=== PATIENT | male | born 1955 | race Caucasian/White ===

== ENCOUNTER → 2019-06-20 | Outpatient (REF) | payer OTHER ==
[2019-06-20 16:36] LABS: PLATELET COUNT, AUTOMATED 153 10^3/uL (150-450)
[2019-06-20 16:48] LABS: INR 1.61; PROTHROMBIN TIME 18.9 SECONDS (11.8-14.0)
[2019-06-20 16:49] LABS: PARTIAL THROMBOPLASTIN TIME 38.3 SECONDS (25.0-38.4)
[2019-06-20 17:14] LABS: ERYTHROCYTE SEDIMENTATION RATE 13 mm/hr (0-20)
== END ==
LOC: M LABDRAW1 14:46
PROVIDERS: ATTEND Physical Medicine & Rehabilitation
DX: Z01.812 Encounter for preprocedural laboratory examination (principal); M51.37 Other intervertebral disc degeneration, lumbosacral region

== ENCOUNTER → 2020-04-18 | Outpatient (CLI) | payer OTHER | LOC: M LABSMTC 11:11 | PROVIDERS: ATTEND Physical Medicine & Rehabilitation | DX: Z03.818 Encounter for observation for suspected exposure to other biological agents ruled out (principal); Z11.59 Encounter for screening for other viral diseases ==

== ENCOUNTER → 2020-07-14 | Outpatient (CLI) | payer OTHER | LOC: M LABSMTC 09:06 | PROVIDERS: ATTEND Physical Medicine & Rehabilitation | DX: Z01.812 Encounter for preprocedural laboratory examination (principal); Z20.828 Contact with and (suspected) exposure to other viral communicable diseases ==

== ENCOUNTER 2020-12-17 11:05 | Inpatient (IN) | payer MEDICARE, OTHER ==
[~2020-12-17] VITALS: Ht 185.4 cm; Wt 131.5 kg
[2020-12-23] MEDS: CLOTRIMAZOLE 10 MG TROCHE PO SCH ×3 (17:00→21:03)
[2020-12-23] MEDS ORDERED: LOSA100T50 PO (17:15)
[2020-12-23] MEDS ORDERED: PANT40TA29 PO (17:15)
[2020-12-23] MEDS ORDERED: TAMS1CAP17 PO (17:15)
[2020-12-23] MEDS ORDERED: POTA20TA6 PO (17:15)
[2020-12-23] MEDS ORDERED: XARE20TA PO (17:15)
[2020-12-23] MEDS ORDERED: METO1TAB33 PO (17:15)
[2020-12-23] MEDS ORDERED: FURO40TA2 PO (17:15)
[2020-12-23] MEDS ORDERED: ATOR1TAB19 PO (17:15)
[2020-12-23] MEDS ORDERED: METF500T13 PO (17:15)
[2020-12-23] MEDS ORDERED: GLUCOSE 4GM CHEW TABLET PO PRN (17:45)
[2020-12-23] MEDS ORDERED: GLUCAGON INJ 1MG VIAL SC PRN (17:45)
[2020-12-23] MEDS ORDERED: ONDANSETRON 4 MG ORAL DISINTEGRATING TAB PO PRN (17:45)
[2020-12-23] MEDS ORDERED: DEXTROSE 50% 50 ML SYRINGE IV PRN (17:45)
[2020-12-23] MEDS ORDERED: ACETAMINOPHEN TAB 650MG DOSE (2X325MG) PO PRN (17:45)
[2020-12-23 18:00] VITALS: BP 142/78
[2020-12-23] MEDS ORDERED: NAFCILLIN SOD 2 GM in D5W MINI-BAG PLUS 50 ML IV SCH ×2 (18:00→21:00)
[2020-12-23] MEDS ORDERED: CLOT10TR PO (18:03)
[2020-12-23] MEDS ORDERED: ACET650T15 PO (18:03)
[2020-12-23] MEDS ORDERED: ONDA4TAB6 PO (18:03)
[2020-12-23] MEDS ORDERED: HYDR-3363 PO (18:03)
[2020-12-23] MEDS ORDERED: LORA-622 PO (18:03)
[2020-12-23] MEDS ORDERED: POLY1POW38 PO (18:03)
[2020-12-23] MEDS ORDERED: SENN-23 PO (18:03)
[2020-12-23] MEDS ORDERED: BIOT1000 PO (18:03)
[2020-12-23] MEDS ORDERED: AMLO2.5T3 PO (18:03)
[2020-12-23] MEDS ORDERED: ROBA750T4 PO (18:03)
[2020-12-23] MEDS ORDERED: COQ1100C4 PO (18:03)
[2020-12-23] MEDS ORDERED: HYDR-3713 PO (18:03)
[2020-12-23] MEDS ORDERED: VITATAB PO (18:03)
[2020-12-23] MEDS ORDERED: BACTINJ2 IV (18:03)
[2020-12-23] MEDS ORDERED: PILL CUTTER 1 EACH XX PRN (18:20)
[2020-12-23] MEDS: RIVAROXABAN 20 MG TAB (XARELTO) PO SCH (18:32)
[2020-12-23] MEDS: NORCO, ANEXSIA 5/325MG TABLET (HYDROcodone/ACETAMINOPHEN) PO PRN (18:33)
[2020-12-23] MEDS: FUROSEMIDE 40 MG TAB PO SCH (18:33)
[2020-12-23 20:00] VITALS: BP 157/86
[2020-12-23] MEDS: NAFCILLIN SOD 2 GM in D5W MINI-BAG PLUS 50 ML IV SCH (20:52)
[2020-12-23] MEDS: POTASSIUM CHLORIDE 10 MEQ SR TABLET PO SCH (20:52)
[2020-12-23] MEDS: NYSTATIN 100,000 UNITS/GM TOPICAL PWD 15 GM TOP SCH (20:52)
[2020-12-23] MEDS: TAMSULOSIN 0.4 MG CAP PO SCH (20:53)
[2020-12-23] MEDS: ATORVASTATIN 10 MG TAB PO SCH (20:53)
[2020-12-23] MEDS: LACTOBACILLUS ACIDOPHILUS CAP (BACID) PO SCH (20:53)
[2020-12-23] MEDS: DOCUSATE SODIUM 100MG CAPSULE PO SCH (20:54)
[2020-12-23] MEDS: SENNA 8.6 MG TAB (SENOKOT) PO SCH (20:55)
[2020-12-23] MEDS: HumaLOG INSULIN (NovoLOG) PER UNIT SC SCH (21:00)
[2020-12-23] MEDS: REMEDY PHYTOPLEX Z-GUARD PASTE 113GM TUBE (FROM STOREROOM PRODUCT) TOP SCH (21:00)
--- NOTE | 2020-12-23 22:14 | HPEPDOC ---
Chain Puller Note DATE OF ADMISSION: 12-23-20 DATE OF SERVICE: 12-24-20 TIME OF ADMISSION: Please refer to physician's admission order. SOURCE OF ADMISSION INFORMATION: [facility] record and patient CHIEF COMPLAINT: spinal stenosis HISTORY OF PRESENT ILLNESS: 65M pmh Afib on xarelto, morbid obesity, MELIA, HTN, DM, CHF with chronic low back pain in setting of known spinal stenosis with worsening LE weakness and saddle region anesthesia with new onset urinary incontinence [facility] with [facility] pain, fevers, and chills. He was diagnosed with [id number] abscess and underwent a L3-L5 laminectomy with abscess I&D on 12-09-[address] Hernandez. Blood cultures grew gram positive cocci, his abscess grew MSSA and his urine culture grew klebsiella. He was also diagnosed with bilateral pneumonia for which he was placed on broad spectrum coverage, meropenem and then later switched to oxacillin to be continued until February 01. He had TIKI for which his diuretics were held and then later restarted for his chronic diastolic CHF. His Xarelto was held and then restarted on 12-18-20. He had deficits in mobility and ADLs and was deemed medically appropriate for discharge to ARU on 12-23-20. REVIEW OF SYSTEMS: The following is a completed review of systems and has been reviewed. Review of systems otherwise unremarkable. PAIN: Patient self reports left lateral hip pain EYES: No recent vision changes EARS, NOSE, & THROAT: No throat pain, or dysphagia, or rhinorrhea CARDIOVASCULAR: Denies chest pain or palpitations PULMONARY: Denies shortness of breath GASTROINTESTINAL: Denies constipation/diarrhea GENITOURINARY: +urinary incontinence MUSCULOSKELETAL: LE weakness NEUROLOGICAL:LE paresthesias HEMATOLOGICAL: denies easy bruising SKIN: lumbar incision PSYCHIATRIC: Unremarkable All other review of systems found to be negative. PAST MEDICAL HISTORY: as per HPI PAST SURGICAL HISTORY: none ALLERGIES: Please see below. MEDICATIONS: Please see below. SOCIAL HISTORY: occasional etoh, no smoking/drugs DIET: consistent carb PHYSICAL EXAMINATION: VITAL SIGNS: Please see below. GENERAL: Pleasant and cooperative. No acute distress. HEENT: PERRL. Extraocular movements intact. Clear conjunctiva CARDIOVASCULAR: Regular rate and rhythm. No murmurs, rubs, or gallops LUNGS: Clear to auscultation bilaterally. No wheezes. No rhonchi ABDOMEN: Soft, nontender, nondistended. Positive bowel sounds. Normal active bowel sounds NEUROLOGICAL: Alert and oriented times three. Cranial nerves II through XII grossly intact. Sensation grossly intact in all 4limbs EXTREMITIES: 5\5 strength bilateral upper extremities. 4+\5 strength right lower extremity. 4+/5 strength in left lower extremity. TTP left posterior buttock SKIN: lumbar incision with dermabond, c/d/i, sacrum without ulcer LABORATORY DATA: Please see below. IMAGING:Imaging documentation personally reviewed by record FUNCTIONAL STATUS: Premorbid: Modified Independent with all activities of daily life as well as mobility On Admission: Mod-Max for bed mobility, functional transfers, ambulation, toileting GOALS: Mod-I ambulating with RW household distances, dressing, bathing, toileting, bed mobility ASSESSMENT:65-year-old M with past medical history of spinal who presents status post L3-L5 laminectomy in setting of neurogenic claudication PLAN: 1. Rehab- PT/OT advance mobility and ADLs, spinal precautions 2. Neuro/ortho- bilat LE weakness in setting of spinal stenosis s/p L3-L5 laminectomy and epidural drainage -monitor for worsening weakness, saddle region anesthesia, or worsening urinary incontinence, patient denies fecal incontinence -f/u spine surgeon upon dc 3. cardiac- hx of afib on xarelto, c/u betablocker -HTN c/u BP meds, adjust prn -chronic CHF c/u lasix and potassium supplements -HLD c/u statin 4. resp- MELIA on CPAP, monitor for infection, patient had recent HAP PNA 5.GI ppx- protonix 6. DVT ppx- on xarelto 7. ID- c/u Nafcillin ([facility] does not carry oxacillin) until 02-01-21, trend esr/crp, will consult dr gonsalez prior to d/c 8. Pain- norco methocarbamol 9. Dispo- tbd POST ADMISSION PHYSICIAN EVALUATION: Medical and functional status: Description of medical status, medical assess ment: As above. Rehabilitation diagnosis and current and prior cold morbid medical conditions as above. Risk of complications and plans to mitigate them as above. Description of functional status current status is as above. Prior status as above. Status compared to preadmission: There are no clinically significant differences between the patient's current status and the information described on the preadmission screening document. Treatment plan anticipated: Treatment plan is as described above. Required disciplines including physical therapy, occupational therapy, others as noted ab ove Intensity of services: 3 hours a day, 6 days a week. Special considerations: There are no specific special or safety considerations that would likely preclude immediate implementation of an intensive r ehabilitation program or subsequently influence the plan of care. ATTESTATION: Considering all the information above, it is my best judgment that this patient requires intensive rehabilitation therapy as described above and an inpatient hospital environment due to the complexity of nursing, medical, and rehabilitation needs required by the patient. Furthermore, this patient can re asonably be expected to participate in an benefit from an inpatient rehabilitation stay with an interdisciplinary team approach to the delivery of rehabilitation care under the direction and supervision of rehabilitation physician. PROGNOSIS: Excellent ESTIMATED LENGTH OF STAY:14-18 days. PROJECTED DISCHARGE DESTINATION: Home with family support and any durable medical equipment required to increase functional safety and mobility TIME SPENT COUNSELING AND COORDINATING INITIAL CARE: Greater than 70 minutes. Vital Signs Vital Sign - Last 24 Hours 12/23/20 12/23/20 12/23/20 12/23/20 18:00 18:33 19:30 20:00 Temp 97.8 98.2 Pulse 89 97 Resp 20 18 18 20 B/P (MAP) 142/78 (99) 157/86 (109) Pulse Ox 94 96 O2 Delivery Room Air Room Air Room Air Room Air Laboratory Data Labs 24H Laboratory Tests 2 12/23/20 20:59: Bedside Glucose (Misc Panel) 153H FSBS Laboratory Tests Test 12/23/20 20:59 Range/Units Bedside Glucose (Misc Panel) 153 80-115 MG/DL Home Medications Scheduled Amlodipine Besylate (Amlodipine Besylate) 2.5 Mg Tablet, 2.5 MG PO DAILY, (Reported) Atorvastatin Calcium (Atorvastatin Calcium) 10 Mg Tablet, 10 MG PO QHS, (Reported) Beta-Carotene(A)-Vits C and E (E-400 C-500 & Beta Carotene) 1 Each Tablet, 1 TAB PO DAILY, (Reported) Biotin (Biotin) 1 Mg Tablet, 1,000 MCG PO Q2D, (Reported) Clotrimazole (Clotrimazole) 10 Mg Yaya, 10 MG PO 5XD, (Reported) Furosemide (Furosemide) 40 Mg Tablet, 40 MG PO BID, (Reported) Loratadine (Loratadine) 10 Mg Tablet, 10 MG PO DAILY, (Reported) Losartan Potassium (Losartan Potassium) 100 Mg Tablet, 100 MG PO DAILY, (Reported) Metformin HCl (Metformin HCl) 500 Mg Tablet, 500 MG PO DAILY, (Reported) Metoprolol Succinate (Metoprolol Succinate) 100 Mg Tab.er.24h, 150 MG PO DAILY, (Reported) Oxacillin in Dextrose(Iso-Osm) (Oxacillin 2 gm/ 50 ml Inj) 2 Gm/50 Ml Froz.piggy, 2 GM IV Q4H, (Reported) Pantoprazole Sodium (Pantoprazole Sodium) 40 Mg Tablet.dr, 40 MG PO DAILY, (Reported) Polyethylene Glycol 3350 (Polyethylene Glycol 3350) 17 Gm Powd.pack, 17 GM PO DAILY, (Reported) Potassium Chloride (Potassium Chloride) 20 Meq Tab.er.prt, 20 MEQ PO BID, (Reported) Rivaroxaban (Xarelto) 20 Mg Tablet, 20 MG PO QPM, (Reported) Sennosides/Docusate Sodium (Senna-S Tablet) 1 Each Tablet, 2 TAB PO QHS, (Rep orted) Tamsulosin Hcl (Tamsulosin HCl) 0.4 Mg Capsule, 0.4 MG PO QHS, (Reported) Ubidecarenone (Co Q-10) 100 Mg Capsule, 100 MG PO QHS, (Reported) Scheduled PRN Acetaminophen (Acetaminophen ER) 650 Mg Tablet.er, 1,300 MG PO TID PRN for PAIN, (Reported) Hydrocodone/Acetaminophen (Hydrocodone-Acetamin 5-325 mg) 1 Each Tablet, 1 TAB PO Q4H PRN for PAIN, (Reported) Hydroxyzine HCl (Hydroxyzine HCl) 25 Mg Tablet, 12.5 MG PO TID PRN for ITCHING, (Reported) Methocarbamol (Robaxin-750) 750 Mg Tablet, 750 MG PO TID PRN for MUSCLE SPASMS, (Reported) Ondansetron (Ondansetron Odt) 4 Mg Tab.rapdis, 4 MG PO Q4H PRN for NAUSEA OR VOMITING, (Reported) Allergies Coded Allergies: No Known Drug Allergies (Verified Allergy, Unknown, 12/23/20) A-FIB/CHADSVASC A-FIB History Current/History of A-Fib/PAF?: Yes Current PO Anticoag Therapy: Yes ARIC FISCHER MD Dec 23, 2020 22:14
[2020-12-24] MEDS: NORCO, ANEXSIA 5/325MG TABLET (HYDROcodone/ACETAMINOPHEN) PO PRN ×2 (01:34→08:19)
[2020-12-24] MEDS: NAFCILLIN SOD 2 GM in D5W MINI-BAG PLUS 50 ML IV SCH ×6 (01:34→20:54)
[2020-12-24] MEDS: CLOTRIMAZOLE 10 MG TROCHE PO SCH ×5 (05:18→20:53)
[2020-12-24 06:00] VITALS: BP 148/87
[2020-12-24] MEDS: methocarbamoL 750 MG TAB PO PRN (06:16)
[2020-12-24 07:05] LABS: BASO # 0.1 10^3/uL (0.0-0.2); BASO % 0.6 % (0.0-1.0); EOS # 0.2 10^3/uL (0.0-0.5); HEMATOCRIT 34.5 % (42.0-52.0); HEMOGLOBIN 10.7 g/dl (13.5-17.5); LYMPH # 1.7 10^3/uL (1.5-5.0); LYMPH % 16.8 % (24.0-44.0); MEAN CORPUSCULAR HEMOGLOBIN 28.1 pg (27.0-33.0); MEAN CORPUSCULAR VOLUME 90.6 fl (80.0-96.0); MONO # 0.8 10^3/uL (0.0-0.8); NEUTROPHILS # 7.1 10^3/uL (1.5-8.5); NEUTROPHILS % 72.2 % (36.0-66.0); PLATELET COUNT, AUTOMATED 300 10^3/uL (150-450); RED BLOOD COUNT 3.81 10^6/uL (4.30-6.10); WHITE BLOOD COUNT 9.9 10^3/uL (4.0-10.0)
[2020-12-24 07:25] LABS: ALBUMIN 2.3 GM/DL (3.2-5.2); ALT/SGPT 70 U/L (12-78); BILIRUBIN,TOTAL 0.6 MG/DL (0.2-1.0); BLOOD UREA NITROGEN 13 MG/DL (7-18); CALCIUM LEVEL 8.6 MG/DL (8.8-10.2); CARBON DIOXIDE LEVEL 31 MEQ/L (21-32); CHLORIDE LEVEL 106 MEQ/L (98-107); CREATININE FOR GFR 0.81 MG/DL (0.70-1.30); GLOMERULAR FILTRATION RATE > 60.0 (>49); GLUCOSE, FASTING 117 MG/DL (70-100); POTASSIUM SERUM 3.8 MEQ/L (3.5-5.1); SODIUM LEVEL 140 MEQ/L (136-145); TOTAL PROTEIN 6.7 GM/DL (6.4-8.2)
[2020-12-24] MEDS: VITAMIN E 400 INTERNATIONAL UNITS CAP PO SCH (08:04)
[2020-12-24] MEDS: DOCUSATE SODIUM 100MG CAPSULE PO SCH ×2 (08:04→20:53)
[2020-12-24] MEDS: LORATADINE 10 MG TAB PO SCH (08:04)
[2020-12-24] MEDS: HumaLOG INSULIN (NovoLOG) PER UNIT SC SCH ×4 (08:04→20:42)
[2020-12-24] MEDS: LACTOBACILLUS ACIDOPHILUS CAP (BACID) PO SCH ×3 (08:05→20:54)
[2020-12-24] MEDS: FUROSEMIDE 40 MG TAB PO SCH ×2 (08:06→17:09)
[2020-12-24] MEDS: METOPROLOL SUCC (TopROL XL) 50MG **XL** TAB PO SCH (08:06)
[2020-12-24] MEDS: ASCORBIC ACID 500 MG TAB PO SCH (08:06)
[2020-12-24] MEDS: POTASSIUM CHLORIDE 10 MEQ SR TABLET PO SCH ×2 (08:06→20:54)
[2020-12-24] MEDS: PANTOPRAZOLE 40MG TAB (PROTONIX) PO SCH (08:06)
[2020-12-24] MEDS: REMEDY PHYTOPLEX Z-GUARD PASTE 113GM TUBE (FROM STOREROOM PRODUCT) TOP SCH ×3 (08:07→20:54)
[2020-12-24] MEDS: LOSARTAN 50MG TABLET PO SCH (08:07)
[2020-12-24] MEDS: NYSTATIN 100,000 UNITS/GM TOPICAL PWD 15 GM TOP SCH ×2 (08:07→20:54)
[2020-12-24] MEDS ORDERED: ANEXSIA, NORCO 7.5MG/325MG TABLET(HYDROCODONE/APAP) PO ONE (12:00)
[2020-12-24] MEDS: hydrOXYzine 25 MG TAB PO PRN (12:25)
--- NOTE | 2020-12-24 12:51 | CR.PDOC ---
General Date of Consultation: Dec 24, 2020 Referring Provider: DAVID GOOD PIC Consultation REASON FOR CONSULTATION/CHIEF COMPLAINT: Management of Medical comorbidities HISTORY OF PRESENT ILLNESS: 65M pmh Afib on xarelto, morbid obesity, HTN, DM, diastolic CHF with chronic low back pain in setting of known spinal stenosis with worsening LE weakness and saddle region anesthesia with new onset urinary incontinence and presented to [facility] with worsening pain, fevers, and chills. He was diagnosed with L3-S1 epidural abscess and underwent a L3-L5 laminectomy with abscess I&D on 12-09-[address] Hernandez. Blood cultures grew gram positive cocci , his abscess grew MSSA. His hospital course was complicated by UTI with Klebsiella, bilateral pneumonia and TIKI. He was initially treated with meropenem and then later switched to oxacillin to be continued until February 01. His Xarelto was restarted on 12-18-20. He had deficits in mobility and ADLs and was deemed medically appropriate for discharge to ARU on 12-23-20.. Today complains of back pain about 4/10 dull aching in nature. ALLERGIES: Please see below. HOME MEDICATIONS: Please see below. PAST MEDICAL HISTORY: Afib on xarelto, Morbid obesity, HTN, DM, diastolic CHF, HLD, spinal stenosis with chronic low back pain had back injection in aug 2020, MELIA on CPAP PAST SURGICAL HISTORY: None FAMILY HISTORY: Father, paternal grandfather, paternal uncle, brother with Diabetes Father, paternal grandfather, 2 paternal uncles and i brother and sister with A fib. SOCIAL HISTORY: Retired RN. Tobacco use: denies ETOH: occasional Illicit drug use: denies REVIEW OF SYSTEMS: CONSTITUTIONAL: No fever or chills. CARDIOVASCULAR: No chest pain or SOB RESPIRATORY: No cough or SOB , no wheezing MUSCULOSKELETAL: Low back pain at the site of the surgery. GASTROINTESTINAL: Denies abdominal pain or nausea or vomiting or diarrhea PHYSICAL EXAMINATION: VITAL SIGNS: Please see below. GENERAL APPEARANCE: Laying flat in bed in no acute distress. Alert , oriented x 3 HEENT: NC/AT moist mucous membranes, anicteric eyes, dry mucous membranes RESPIRATORY: Clear to auscultation CARDIOVASCULAR: Normal S1, S2, no murmur, rub or gallop ABDOMEN: soft, obese, nontender, bowel sounds normal EXTREMITIES: No edema LABORATORY DATA: Please see below. ASSESSMENT/PLAN: L3-S1 epidural abscess by MSSA underwent a L3-L5 laminectomy with abscess I&D on 12-09-20 at [facility] He reports that he had an epidural injection at the low back in Aug 2020, No h/o IV drug use or any other recent infection. He did get his 2 doses of COVID vaccine in nov and the second dose 1 week prir t admission at [facility] Nafcillin till February 01 Afib rate controlled with metoprolol, Ac with xarelto HTN on losartan, metoprolol , amlodipine and lasix Diastolic CHF on lasix bid BPH on flomax. MELIA Continue home CPAP DVT prophylaxis on xarelto Vital Signs/I&O Vital Signs Date Time Temp Pulse Resp B/P (MAP) Pulse Ox O2 Delivery O2 Flow Rate FiO2 12/24/20 06:00 98.3 85 20 148/87 (107) 97 Room Air I&O- Last 24 Hours up to 6 AM 12/24/20 06:00 Intake Total 400 ml Output Total 1550 ml Balance -1150 ml Laboratory Data Labs 24H Laboratory Tests 2 12/23/20 20:59: Bedside Glucose (Misc Panel) 153H 12/24/20 05:58: Bedside Glucose (Misc Panel) 106 12/24/20 06:30: Immature Granulocyte % (Auto) 0.4, Neutrophils (%) (Auto) 72.2H, Lymphocytes (%) (Auto) 16.8L, Monocytes (%) (Auto) 8.0, Eosinophils (%) (Auto) 2.0, Basophils (%) (Auto) 0.6, Neutrophils # (Auto) 7.1, Lymphocytes # (Auto) 1.7, Monocytes # (Auto) 0.8, Eosinophils # (Auto) 0.2, Basophils # (Auto) 0.1, Nucleated Red Blood Cells % (auto) 0.0, Anion Gap 3L, Glomerular Filtration Rate > 60.0, Calcium Level 8.6L, Total Bilirubin 0.6, Aspartate Amino Transf (AST/SGOT) 24, Alanine Aminotransferase (ALT/SGPT) 70, Alkaline Phosphatase 93, Total Protein 6.7, Albumin 2.3L, Albumin/Globulin Ratio 0.5 CBC/BMP Laboratory Tests 12/24/20 06:30 Allergies Coded Allergies: No Known Drug Allergies (Verified Allergy, Unknown, 12/23/20) Home Medications Scheduled Amlodipine Besylate (Amlodipine Besylate) 2.5 Mg Tablet, 2.5 MG PO DAILY, (Rep orted) Atorvastatin Calcium (Atorvastatin Calcium) 10 Mg Tablet, 10 MG PO QHS, (Reported) Beta-Carotene(A)-Vits C and E (E-400 C-500 & Beta Carotene) 1 Each Tablet, 1 TAB PO DAILY, (Reported) Biotin (Biotin) 1 Mg Tablet, 1,000 MCG PO Q2D, (Reported) Clotrimazole (Clotrimazole) 10 Mg Yaya, 10 MG PO 5XD, (Reported) Furosemide (Furosemide) 40 Mg Tablet, 40 MG PO BID, (Reported) Loratadine (Loratadine) 10 Mg Tablet, 10 MG PO DAILY, (Reported) Losartan Potassium (Losartan Potassium) 100 Mg Tablet, 100 MG PO DAILY, (Reported) Metformin HCl (Metformin HCl) 500 Mg Tablet, 500 MG PO DAILY, (Reported) Metoprolol Succinate (Metoprolol Succinate) 100 Mg Tab.er.24h, 150 MG PO DAILY, (Reported) Oxacillin in Dextrose(Iso-Osm) (Oxacillin 2 gm/ 50 ml Inj) 2 Gm/50 Ml Froz.piggy, 2 GM IV Q4H, (Reported) Pantoprazole Sodium (Pantoprazole Sodium) 40 Mg Tablet.dr, 40 MG PO DAILY, (Reported) Polyethylene Glycol 3350 (Polyethylene Glycol 3350) 17 Gm Powd.pack, 17 GM PO DAILY, (Reported) Potassium Chloride (Potassium Chloride) 20 Meq Tab.er.prt, 20 MEQ PO BID, (Reported) Rivaroxaban (Xarelto) 20 Mg Tablet, 20 MG PO QPM, (Reported) Sennosides/Docusate Sodium (Senna-S Tablet) 1 Each Tablet, 2 TAB PO QHS, (Reported) Tamsulosin Hcl (Tamsulosin HCl) 0.4 Mg Capsule, 0.4 MG PO QHS, (Reported) Ubidecarenone (Co Q-10) 100 Mg Capsule, 100 MG PO QHS, (Reported) Scheduled PRN Acetaminophen (Acetaminophen ER) 650 Mg Tablet.er, 1,300 MG PO TID PRN for PAIN, (Reported) Hydrocodone/Acetaminophen (Hydrocodone-Acetamin 5-325 mg) 1 Each Tablet, 1 TAB PO Q4H PRN for PAIN, (Reported) Hydroxyzine HCl (Hydroxyzine HCl) 25 Mg Tablet, 12.5 MG PO TID PRN for ITCHING, (Reported) Methocarbamol (Robaxin-750) 750 Mg Tablet, 750 MG PO TID PRN for MUSCLE SPASMS, (Reported) Ondansetron (Ondansetron Odt) 4 Mg Tab.rapdis, 4 MG PO Q4H PRN for NAUSEA OR VOMITING, (Reported) LAINEY COCHRAN MD Dec 24, 2020 07:53
[2020-12-24 14:00] VITALS: BP 104/57
[2020-12-24] MEDS: RIVAROXABAN 20 MG TAB (XARELTO) PO SCH (17:09)
[2020-12-24 20:00] VITALS: BP 135/71
[2020-12-24] MEDS: SENNA 8.6 MG TAB (SENOKOT) PO SCH (20:53)
[2020-12-24] MEDS: TAMSULOSIN 0.4 MG CAP PO SCH (20:54)
[2020-12-24] MEDS: ATORVASTATIN 10 MG TAB PO SCH (20:54)
[2020-12-25] MEDS: NAFCILLIN SOD 2 GM in D5W MINI-BAG PLUS 50 ML IV SCH ×6 (01:18→21:04)
[2020-12-25] MEDS: NORCO, ANEXSIA 5/325MG TABLET (HYDROcodone/ACETAMINOPHEN) PO PRN ×3 (04:13→17:29)
[2020-12-25 06:00] VITALS: BP 134/77
[2020-12-25] MEDS: hydrOXYzine 25 MG TAB PO PRN (06:12)
[2020-12-25] MEDS: methocarbamoL 750 MG TAB PO PRN ×2 (06:12→12:28)
[2020-12-25] MEDS: CLOTRIMAZOLE 10 MG TROCHE PO SCH ×3 (06:12→12:28)
[2020-12-25 08:22] LABS: BASO # 0.1 10^3/uL (0.0-0.2); BASO % 0.6 % (0.0-1.0); EOS # 0.2 10^3/uL (0.0-0.5); EOS % 1.7 % (0.0-3.0); HEMATOCRIT 33.5 % (42.0-52.0); HEMOGLOBIN 10.4 g/dl (13.5-17.5); LYMPH # 1.5 10^3/uL (1.5-5.0); LYMPH % 15.4 % (24.0-44.0); MEAN CORPUSCULAR HEMOGLOBIN 28.3 pg (27.0-33.0); MONO # 0.8 10^3/uL (0.0-0.8); MONO % 8.5 % (2.0-8.0); NEUTROPHILS % 73.5 % (36.0-66.0); PLATELET COUNT, AUTOMATED 290 10^3/uL (150-450); RED BLOOD COUNT 3.68 10^6/uL (4.30-6.10); WHITE BLOOD COUNT 9.6 10^3/uL (4.0-10.0)
[2020-12-25 08:46] LABS: BLOOD UREA NITROGEN 12 MG/DL (7-18); C REACTIVE PROTEIN QUANTITATIV 6.28 MG/DL (0.00-0.30); CALCIUM LEVEL 8.8 MG/DL (8.8-10.2); CARBON DIOXIDE LEVEL 30 MEQ/L (21-32); CHLORIDE LEVEL 104 MEQ/L (98-107); ERYTHROCYTE SEDIMENTATION RATE > 140 mm/hr (0-20); GLOMERULAR FILTRATION RATE > 60.0 (>49); GLUCOSE, FASTING 115 MG/DL (70-100); POTASSIUM SERUM 3.8 MEQ/L (3.5-5.1); SODIUM LEVEL 141 MEQ/L (136-145)
[2020-12-25] MEDS: HumaLOG INSULIN (NovoLOG) PER UNIT SC SCH ×4 (09:11→21:00)
[2020-12-25] MEDS: PANTOPRAZOLE 40MG TAB (PROTONIX) PO SCH (09:12)
[2020-12-25] MEDS: VITAMIN E 400 INTERNATIONAL UNITS CAP PO SCH (09:12)
[2020-12-25] MEDS: LORATADINE 10 MG TAB PO SCH (09:12)
[2020-12-25] MEDS: ASCORBIC ACID 500 MG TAB PO SCH (09:12)
[2020-12-25] MEDS: DOCUSATE SODIUM 100MG CAPSULE PO SCH ×2 (09:12→21:03)
[2020-12-25] MEDS: METOPROLOL SUCC (TopROL XL) 50MG **XL** TAB PO SCH (09:13)
[2020-12-25] MEDS: FUROSEMIDE 40 MG TAB PO SCH ×2 (09:13→17:28)
[2020-12-25] MEDS: LOSARTAN 50MG TABLET PO SCH (09:13)
[2020-12-25] MEDS: LACTOBACILLUS ACIDOPHILUS CAP (BACID) PO SCH ×3 (09:13→21:03)
[2020-12-25] MEDS: POTASSIUM CHLORIDE 10 MEQ SR TABLET PO SCH ×2 (09:13→21:03)
[2020-12-25] MEDS: REMEDY PHYTOPLEX Z-GUARD PASTE 113GM TUBE (FROM STOREROOM PRODUCT) TOP SCH ×3 (09:14→21:04)
[2020-12-25] MEDS: LIDOCAINE 5% (LIDODERM) PATCH TD SCH (09:15)
[2020-12-25] MEDS: NYSTATIN 100,000 UNITS/GM TOPICAL PWD 15 GM TOP SCH ×2 (09:15→21:05)
--- NOTE | 2020-12-25 09:32 | IPNPDOC ---
PM&R Progress Note DATE OF SERVICE: Dec 25, 2020 Family Advocate Progress Note Subjective: Patient stating he was able to walk 50ft, but that his back is having intense spasms. He does not want to change his current pain medication regimen just yet. REVIEW OF SYSTEMS: The following is a completed review of systems and has been reviewed. Review of systems otherwise unremarkable. PAIN: Patient self reports left lateral hip pain EYES: No recent vision changes EARS, NOSE, & THROAT: No throat pain, or dysphagia, or rhinorrhea CARDIOVASCULAR: Denies chest pain or palpitations PULMONARY: Denies shortness of breath GASTROINTESTINAL: Denies constipation/diarrhea GENITOURINARY: +urinary incontinence MUSCULOSKELETAL: LE weakness NEUROLOGICAL:LE paresthesias HEMATOLOGICAL: denies easy bruising SKIN: lumbar incision PSYCHIATRIC: Unremarkable All other review of systems found to be negative. PHYSICAL EXAMINATION: VITAL SIGNS: Please see below. GENERAL: Pleasant and cooperative. No acute distress. HEENT: PERRL. Extraocular movements intact. Clear conjunctiva CARDIOVASCULAR: Regular rate and rhythm. No murmurs, rubs, or gallops LUNGS: Clear to auscultation bilaterally. No wheezes. No rhonchi ABDOMEN: Soft, nontender, nondistended. Positive bowel sounds. Normal active bowel sounds NEUROLOGICAL: Alert and oriented times three. Cranial nerves II through XII grossly intact. Sensation grossly intact in all 4limbs EXTREMITIES: 5\5 strength bilateral upper extremities. 4+\5 strength right lower extremity. 4+/5 strength in left lower extremity. TTP left posterior buttock SKIN: lumbar incision with dermabond, c/d/i, sacrum without ulcer LABORATORY DATA: Please see below. GOALS: Mod-I ambulating with RW household distances, dressing, bathing, toileting, bed mobility ASSESSMENT:65-year-old M with past medical history of spinal who presents status post L3-L5 laminectomy in setting of neurogenic claudication PLAN: 1. Rehab- PT/OT advance mobility and ADLs, spinal precautions 2. Neuro/ortho- bilat LE weakness in setting of spinal stenosis s/p L3-L5 laminectomy and epidural drainage -monitor for worsening weakness, saddle region anesthesia, or worsening urinary incontinence, patient denies fecal incontinence -f/u spine surgeon upon dc 3. cardiac- hx of afib on xarelto, c/u betablocker -HTN c/u BP meds, adjust prn -chronic CHF c/u lasix and potassium supplements -HLD c/u statin 4. resp- MELIA on CPAP, monitor for infection, patient had recent HAP PNA 5.GI ppx- protonix 6. DVT ppx- on xarelto 7. ID- c/u Nafcillin ([facility] does not carry oxacillin) until 02-01-21, trend esr/crp, will consult dr gonsalez 8. Pain- norco, methocarbamol 9. Dispo- tbd Allergies Coded Allergies: No Known Drug Allergies (Verified Allergy, Unknown, 12/23/20) Vital Signs Vital Signs Date Time Temp Pulse Resp B/P (MAP) Pulse Ox O2 Delivery O2 Flow Rate FiO2 12/25/20 09:14 18 Room Air 12/25/20 09:13 105 12/25/20 09:13 124/69 12/25/20 06:00 97.1 94 Laboratory Data CBC/BMP Laboratory Tests 12/25/20 06:00 Labs 24H Laboratory Tests 2 12/24/20 11:26: Bedside Glucose (Misc Panel) 109 12/24/20 16:34: Bedside Glucose (Misc Panel) 121H 12/24/20 20:41: Bedside Glucose (Misc Panel) 192H 12/25/20 06:00: Immature Granulocyte % (Auto) 0.3, Neutrophils (%) (Auto) 73.5H, Lymphocytes (%) (Auto) 15.4L, Monocytes (%) (Auto) 8.5H, Eosinophils (%) (Auto) 1.7, Basophils (%) (Auto) 0.6, Neutrophils # (Auto) 7.0, Lymphocytes # (Auto) 1.5, Monocytes # (Auto) 0.8, Eosinophils # (Auto) 0.2, Basophils # (Auto) 0.1, Nucleated Red Blood Cells % (auto) 0.0, Erythrocyte Sedimentation Rate > 140H, Anion Gap 7L, Glomerular Filtration Rate > 60.0, Calcium Level 8.8, C-Reactive Protein, Quantitative 6.28H 12/25/20 06:05: Bedside Glucose (Misc Panel) 120H Current Medications Current Medications Current Medications Medications (Trade) Dose Ordered Sig/No Route PRN Reason Start Time Stop Time Status Last Admin Dose Admin Acetaminophen (Tylenol Tab) 650 mg Q12HP PRN PO fever 12/23/20 17:45 Acetaminophen/ Hydrocodone Bitart ([place], Anexsia 5/325) 1 tab Q4HP PRN PO MILD/MODERATE PAIN (PS 1-7) 12/23/20 17:45 12/25/20 09:14 Amlodipine Besylate (Norvasc) 2.5 mg DAILY PO 12/24/20 09:00 12/25/20 09:14 Ascorbic Acid (Vitamin C) 500 mg DAILY PO 12/24/20 09:00 12/25/20 09:12 Atorvastatin Calcium (Lipitor) 10 mg QHS PO 12/23/20 21:00 12/24/20 20:54 Clotrimazole (Mycelex) 10 mg 5XD PO 12/23/20 17:00 12/25/20 16:59 12/25/20 09:12 Dextrose (Dextrose 50%) 25 ml ASDIRECTED PRN IV SEE LABEL COMMENTS 12/23/20 17:45 Docusate Sodium (Colace) 100 mg BID PO 12/23/20 21:00 12/25/20 09:12 Furosemide (Lasix) 40 mg BID@09,17 PO 12/23/20 17:00 12/25/20 09:13 Glucagon (Glucagon) 1 mg ASDIRECTED PRN SC SEE LABEL COMMENTS 12/23/20 17:45 Glucose (Glucose) 16 GM ASDIRECTED PRN PO SEE LABEL COMMENTS 12/23/20 17:45 Heparin Sodium (Heparin (Flush)) 200 units ASDIRECTED PRN IV SEE LABEL COMMENTS 12/24/20 13:10 12/24/20 17:10 Home Med (Med Rec Complete!) ASDIRECTED XX 12/23/20 18:05 12/23/20 18:06 DC Hydroxyzine HCl (Atarax) 12.5 mg TID PRN PO itch 12/23/20 17:45 12/25/20 06:12 Insulin Human Lispro (HumaLOG INSULIN) SEE PROTOCOL TABLE AC SC 12/24/20 07:30 12/25/20 09:11 Insulin Human Lispro (HumaLOG INSULIN) SEE PROTOCOL TABLE QHS SC 12/23/20 21:00 Lactobacillus Acidophilus (Bacid) 1 ea TID PO 12/23/20 21:00 12/25/20 09:13 Lidocaine (Lidoderm Patch) 1 patch DAILY TD 12/25/20 09:00 12/25/20 09:15 Loratadine (Claritin) 10 mg DAILY PO 12/24/20 09:00 12/25/20 09:12 Losartan Potassium (Cozaar) 100 mg DAILY PO 12/24/20 09:00 12/25/20 09:13 Methocarbamol (Robaxin) 750 mg TID PRN PO spasm 12/23/20 17:45 12/25/20 06:12 Metoprolol Succinate (TopROL XL) 150 mg DAILY PO 12/24/20 09:00 12/25/20 09:13 Nafcillin Sodium 2 gm/Dextrose 50 ml @ 100 mls/hr Q4H IV 12/23/20 18:00 12/23/20 20:14 DC Nafcillin Sodium 2 gm/Dextrose 50 ml @ 100 mls/hr Q4H IV 12/23/20 21:00 Cancel Nafcillin Sodium 2 gm/Dextrose 50 ml @ 50 mls/hr Q4H IV 12/23/20 21:00 12/25/20 09:16 Non-Formulary Medication ( See Comment Field Below ) REMOVE LIDODERM PATCH DAILY@21 XX 12/25/20 21:00 Nystatin (Mycostatin Powder, Nystop) apply to groin area BID TOP 12/23/20 21:00 12/25/20 09:15 Ondansetron HCl (Zofran Odt) 4 mg Q6HP PRN PO NAUSEA OR VOMITING 12/23/20 17:45 12/25/20 01:21 Pantoprazole Sodium (Protonix) 40 mg DAILY PO 12/24/20 09:00 12/25/20 09:12 Potassium Chloride (Micro-K Extencaps) 20 meq BID PO 12/23/20 21:00 12/25/20 09:13 Rivaroxaban (Xarelto) 20 mg DAILY@18 PO 12/23/20 18:00 12/24/20 17:09 Senna (Senokot) 1 tab QHS PO 12/23/20 21:00 12/24/20 20:53 Tamsulosin HCl (Flomax) 0.4 mg QHS PO 12/23/20 21:00 12/24/20 20:54 Vitamin E (Vitamin E) 400 units DAILY PO 12/24/20 09:00 12/25/20 09:12 ARIC FISCHER MD Dec 25, 2020 09:32
[2020-12-25 14:00] VITALS: BP 131/71
[2020-12-25] MEDS: RIVAROXABAN 20 MG TAB (XARELTO) PO SCH (17:28)
[2020-12-25 20:00] VITALS: BP 133/71
[2020-12-25] MEDS: **NOTE PATIENT COMMENT** MISC XX SCH (21:02)
[2020-12-25] MEDS: ATORVASTATIN 10 MG TAB PO SCH (21:04)
[2020-12-25] MEDS: SENNA 8.6 MG TAB (SENOKOT) PO SCH (21:04)
[2020-12-25] MEDS: TAMSULOSIN 0.4 MG CAP PO SCH (21:04)
[2020-12-26] MEDS: NORCO, ANEXSIA 5/325MG TABLET (HYDROcodone/ACETAMINOPHEN) PO PRN ×5 (00:04→20:21)
[2020-12-26] MEDS: hydrOXYzine 25 MG TAB PO PRN ×2 (00:04→08:20)
[2020-12-26] MEDS: methocarbamoL 750 MG TAB PO PRN ×3 (00:04→20:20)
[2020-12-26] MEDS: NAFCILLIN SOD 2 GM in D5W MINI-BAG PLUS 50 ML IV SCH ×6 (00:59→21:12)
[2020-12-26 06:00] VITALS: BP 130/71
[2020-12-26] MEDS: HumaLOG INSULIN (NovoLOG) PER UNIT SC SCH ×4 (07:30→20:04)
[2020-12-26] MEDS: POTASSIUM CHLORIDE 10 MEQ SR TABLET PO SCH ×2 (08:18→20:20)
[2020-12-26] MEDS: METOPROLOL SUCC (TopROL XL) 50MG **XL** TAB PO SCH (08:18)
[2020-12-26] MEDS: LACTOBACILLUS ACIDOPHILUS CAP (BACID) PO SCH ×3 (08:19→20:20)
[2020-12-26] MEDS: FUROSEMIDE 40 MG TAB PO SCH ×2 (08:19→17:00)
[2020-12-26] MEDS: LOSARTAN 50MG TABLET PO SCH (08:19)
[2020-12-26] MEDS: VITAMIN E 400 INTERNATIONAL UNITS CAP PO SCH (08:19)
[2020-12-26] MEDS: PANTOPRAZOLE 40MG TAB (PROTONIX) PO SCH (08:20)
[2020-12-26] MEDS: ASCORBIC ACID 500 MG TAB PO SCH (08:20)
[2020-12-26] MEDS: DOCUSATE SODIUM 100MG CAPSULE PO SCH ×2 (08:20→20:21)
[2020-12-26] MEDS: LORATADINE 10 MG TAB PO SCH (08:24)
[2020-12-26] MEDS: LIDOCAINE 5% (LIDODERM) PATCH TD SCH (08:25)
[2020-12-26] MEDS: REMEDY PHYTOPLEX Z-GUARD PASTE 113GM TUBE (FROM STOREROOM PRODUCT) TOP SCH ×3 (08:30→20:21)
[2020-12-26] MEDS: NYSTATIN 100,000 UNITS/GM TOPICAL PWD 15 GM TOP SCH ×2 (08:31→20:21)
--- NOTE | 2020-12-26 09:50 | IPNPDOC ---
PM&R Progress Note DATE OF SERVICE: Dec 26, 2020 Supervisor Gluing Progress Note Subjective: Patient reporting his pain levels are better and he is able to tolerate therapy. He states he has bowel movements weekly at home and does not feel constipated. REVIEW OF SYSTEMS: The following is a completed review of systems and has been reviewed. Review of systems otherwise unremarkable. PAIN: Patient self reports left lateral hip pain EYES: No recent vision changes EARS, NOSE, & THROAT: No throat pain, or dysphagia, or rhinorrhea CARDIOVASCULAR: Denies chest pain or palpitations PULMONARY: Denies shortness of breath GASTROINTESTINAL: Denies constipation/diarrhea GENITOURINARY: +urinary incontinence (improving) MUSCULOSKELETAL: LE weakness NEUROLOGICAL:LE paresthesias HEMATOLOGICAL: denies easy bruising SKIN: lumbar incision PSYCHIATRIC: Unremarkable All other review of systems found to be negative. PHYSICAL EXAMINATION: VITAL SIGNS: Please see below. GENERAL: Pleasant and cooperative. No acute distress. HEENT: PERRL. Extraocular movements intact. Clear conjunctiva CARDIOVASCULAR: Regular rate and rhythm. No murmurs, rubs, or gallops LUNGS: Clear to auscultation bilaterally. No wheezes. No rhonchi ABDOMEN: Soft, nontender, nondistended. Positive bowel sounds. Normal active bowel sounds NEUROLOGICAL: Alert and oriented times three. Cranial nerves II through XII grossly intact. Sensation grossly intact in all 4limbs EXTREMITIES: 5\5 strength bilateral upper extremities. 4+\5 strength right lower extremity. 4+/5 strength in left lower extremity. TTP left posterior buttock SKIN: lumbar incision with dermabond, c/d/i, sacrum without ulcer LABORATORY DATA: Please see below. PLAN: 1. Rehab- PT/OT advance mobility and ADLs, spinal precautions- ambulating with RW 2. Neuro/ortho- bilat LE weakness in setting of spinal stenosis s/p L3-L5 l aminectomy and epidural drainage -monitor for worsening weakness, saddle region anesthesia, or worsening urinary incontinence, patient denies fecal incontinence -f/u spine surgeon upon dc 3. cardiac- hx of afib on xarelto, c/u betablocker -HTN c/u BP meds, adjust prn -chronic CHF c/u lasix and potassium supplements -HLD c/u statin 4. resp- MELIA on CPAP, monitor for infection, patient had recent HAP PNA 5.GI ppx- protonix 6. DVT ppx- on xarelto 7. ID- c/u Nafcillin ([facility] does not carry oxacillin) until 02-01-21, trend esr/crp, dr gonsalez consulted 8. Pain- norco, methocarbamol, Tylenol 9. Dispo- tbd Allergies Coded Allergies: No Known Drug Allergies (Verified Allergy, Unknown, 12/23/20) Vital Signs Vital Signs Date Time Temp Pulse Resp B/P (MAP) Pulse Ox O2 Delivery O2 Flow Rate FiO2 12/26/20 08:24 18 Room Air 12/26/20 08:18 64 122/80 12/26/20 06:00 96.9 95 Laboratory Data Labs 24H Laboratory Tests 2 12/25/20 11:31: Bedside Glucose (Misc Panel) 127H 12/25/20 16:44: Bedside Glucose (Misc Panel) 100 12/25/20 20:17: Bedside Glucose (Misc Panel) 151H 12/26/20 05:43: Bedside Glucose (Misc Panel) 101 Current Medications Current Medications Current Medications Medications (Trade) Dose Ordered Sig/No Route PRN Reason Start Time Stop Time Status Last Admin Dose Admin Acetaminophen (Tylenol Tab) 650 mg Q12HP PRN PO fever 12/23/20 17:45 Acetaminophen/ Hydrocodone Bitart ([place], Anexsia 5/325) 1 tab Q4HP PRN PO MILD/MODERATE PAIN (PS 1-7) 12/23/20 17:45 12/26/20 08:24 Amlodipine Besylate (Norvasc) 2.5 mg DAILY PO 12/24/20 09:00 12/26/20 08:19 Ascorbic Acid (Vitamin C) 500 mg DAILY PO 12/24/20 09:00 12/26/20 08:20 Atorvastatin Calcium (Lipitor) 10 mg QHS PO 12/23/20 21:00 12/25/20 21:04 Clotrimazole (Mycelex) 10 mg 5XD PO 12/23/20 17:00 12/25/20 16:59 DC 12/25/20 12:28 Dextrose (Dextrose 50%) 25 ml ASDIRECTED PRN IV SEE LABEL COMMENTS 12/23/20 17:45 Docusate Sodium (Colace) 100 mg BID PO 12/23/20 21:00 12/26/20 08:20 Furosemide (Lasix) 40 mg BID@09,17 PO 12/23/20 17:00 12/26/20 08:19 Glucagon (Glucagon) 1 mg ASDIRECTED PRN SC SEE LABEL COMMENTS 12/23/20 17:45 Glucose (Glucose) 16 GM ASDIRECTED PRN PO SEE LABEL COMMENTS 12/23/20 17:45 Heparin Sodium (Heparin (Flush)) 200 units ASDIRECTED PRN IV SEE LABEL COMMENTS 12/24/20 13:10 12/24/20 17:10 Home Med (Med Rec Complete!) ASDIRECTED XX 12/23/20 18:05 12/23/20 18:06 DC Hydroxyzine HCl (Atarax) 12.5 mg TID PRN PO itch 12/23/20 17:45 12/26/20 08:20 Insulin Human Lispro (HumaLOG INSULIN) SEE PROTOCOL TABLE AC SC 12/24/20 07:30 12/25/20 12:28 Insulin Human Lispro (HumaLOG INSULIN) SEE PROTOCOL TABLE QHS SC 12/23/20 21:00 Lactobacillus Acidophilus (Bacid) 1 ea TID PO 12/23/20 21:00 12/26/20 08:19 Lidocaine (Lidoderm Patch) 1 patch DAILY TD 12/25/20 09:00 12/26/20 08:25 Loratadine (Claritin) 10 mg DAILY PO 12/24/20 09:00 12/26/20 08:24 Losartan Potassium (Cozaar) 100 mg DAILY PO 12/24/20 09:00 12/26/20 08:19 Methocarbamol (Robaxin) 750 mg TID PRN PO spasm 12/23/20 17:45 12/26/20 08:19 Metoprolol Succinate (TopROL XL) 150 mg DAILY PO 12/24/20 09:00 12/26/20 08:18 Nafcillin Sodium 2 gm/Dextrose 50 ml @ 100 mls/hr Q4H IV 12/23/20 18:00 12/23/20 20:14 DC Nafcillin Sodium 2 gm/Dextrose 50 ml @ 100 mls/hr Q4H IV 12/23/20 21:00 Cancel Nafcillin Sodium 2 gm/Dextrose 50 ml @ 50 mls/hr Q4H IV 12/23/20 21:00 12/26/20 08:25 Non-Formulary Medication ( See Comment Field Below ) REMOVE LIDODERM PATCH DAILY@21 XX 12/25/20 21:00 12/25/20 21:02 Nystatin (Mycostatin Powder, Nystop) apply to groin area BID TOP 12/23/20 21:00 12/26/20 08:31 Ondansetron HCl (Zofran Odt) 4 mg Q6HP PRN PO NAUSEA OR VOMITING 12/23/20 17:45 12/25/20 01:21 Pantoprazole Sodium (Protonix) 40 mg DAILY PO 12/24/20 09:00 12/26/20 08:20 Potassium Chloride (Micro-K Extencaps) 20 meq BID PO 12/23/20 21:00 12/26/20 08:18 Rivaroxaban (Xarelto) 20 mg DAILY@18 PO 12/23/20 18:00 12/25/20 17:28 Senna (Senokot) 1 tab QHS PO 12/23/20 21:00 12/25/20 21:04 Tamsulosin HCl (Flomax) 0.4 mg QHS PO 12/23/20 21:00 12/25/20 21:04 Vitamin E (Vitamin E) 400 units DAILY PO 12/24/20 09:00 12/26/20 08:19 ARIC FISCHER MD Dec 26, 2020 09:50
[2020-12-26 14:00] VITALS: BP 113/61
[2020-12-26] MEDS: RIVAROXABAN 20 MG TAB (XARELTO) PO SCH (17:10)
[2020-12-26 20:00] VITALS: BP 142/78
[2020-12-26] MEDS: ATORVASTATIN 10 MG TAB PO SCH (20:20)
[2020-12-26] MEDS: SENNA 8.6 MG TAB (SENOKOT) PO SCH (20:20)
[2020-12-26] MEDS: TAMSULOSIN 0.4 MG CAP PO SCH (20:21)
[2020-12-26] MEDS: **NOTE PATIENT COMMENT** MISC XX SCH (20:22)
[2020-12-27] MEDS: NAFCILLIN SOD 2 GM in D5W MINI-BAG PLUS 50 ML IV SCH ×6 (01:26→20:46)
[2020-12-27] MEDS: NORCO, ANEXSIA 5/325MG TABLET (HYDROcodone/ACETAMINOPHEN) PO PRN ×5 (01:26→20:45)
[2020-12-27 04:59] VITALS: BP 139/85
[2020-12-27] MEDS: hydrOXYzine 25 MG TAB PO PRN (06:27)
[2020-12-27] MEDS: methocarbamoL 750 MG TAB PO PRN ×3 (06:27→20:44)
[2020-12-27] MEDS: HumaLOG INSULIN (NovoLOG) PER UNIT SC SCH ×4 (07:30→20:46)
[2020-12-27 07:40] LABS: BASO # 0.1 10^3/uL (0.0-0.2); BASO % 0.8 % (0.0-1.0); EOS # 0.2 10^3/uL (0.0-0.5); EOS % 2.5 % (0.0-3.0); HEMATOCRIT 33.4 % (42.0-52.0); HEMOGLOBIN 10.6 g/dl (13.5-17.5); LYMPH # 1.8 10^3/uL (1.5-5.0); LYMPH % 20.9 % (24.0-44.0); MEAN CORPUSCULAR HEMOGLOBIN 28.7 pg (27.0-33.0); MEAN CORPUSCULAR HGB CONC 31.7 g/dl (32.0-36.5); MEAN CORPUSCULAR VOLUME 90.5 fl (80.0-96.0); MONO # 0.7 10^3/uL (0.0-0.8); MONO % 8.4 % (2.0-8.0); NEUTROPHILS # 5.7 10^3/uL (1.5-8.5); NEUTROPHILS % 66.9 % (36.0-66.0); PLATELET COUNT, AUTOMATED 292 10^3/uL (150-450); RED BLOOD COUNT 3.69 10^6/uL (4.30-6.10); WHITE BLOOD COUNT 8.6 10^3/uL (4.0-10.0)
[2020-12-27 07:55] LABS: BLOOD UREA NITROGEN 17 MG/DL (7-18); C REACTIVE PROTEIN QUANTITATIV 5.22 MG/DL (0.00-0.30); CALCIUM LEVEL 9.1 MG/DL (8.8-10.2); CARBON DIOXIDE LEVEL 29 MEQ/L (21-32); CHLORIDE LEVEL 107 MEQ/L (98-107); CREATININE FOR GFR 0.79 MG/DL (0.70-1.30); GLOMERULAR FILTRATION RATE > 60.0 (>49); GLUCOSE, FASTING 108 MG/DL (70-100); POTASSIUM SERUM 3.7 MEQ/L (3.5-5.1); SODIUM LEVEL 142 MEQ/L (136-145)
[2020-12-27 08:35] LABS: ERYTHROCYTE SEDIMENTATION RATE 87 mm/hr (0-20)
--- NOTE | 2020-12-27 08:43 | IPNPDOC ---
PM&R Progress Note DATE OF SERVICE: Dec 27, 2020 Rock Worker Progress Note Subjective: Patient reporting he feels good, no complaints. REVIEW OF SYSTEMS: The following is a completed review of systems and has been reviewed. Review of systems otherwise unremarkable. PAIN: Patient self reports left lateral hip pain EYES: No recent vision changes EARS, NOSE, & THROAT: No throat pain, or dysphagia, or rhinorrhea CARDIOVASCULAR: Denies chest pain or palpitations PULMONARY: Denies shortness of breath GASTROINTESTINAL: Denies constipation/diarrhea GENITOURINARY: +urinary incontinence (improving) MUSCULOSKELETAL: LE weakness NEUROLOGICAL:LE paresthesias HEMATOLOGICAL: denies easy bruising SKIN: lumbar incision PSYCHIATRIC: Unremarkable All other review of systems found to be negative. PHYSICAL EXAMINATION: VITAL SIGNS: Please see below. GENERAL: Pleasant and cooperative. No acute distress. HEENT: PERRL. Extraocular movements intact. Clear conjunctiva CARDIOVASCULAR: Regular rate and rhythm. No murmurs, rubs, or gallops LUNGS: Clear to auscultation bilaterally. No wheezes. No rhonchi ABDOMEN: Soft, nontender, nondistended. Positive bowel sounds. Normal active bowel sounds NEUROLOGICAL: Alert and oriented times three. Cranial nerves II through XII grossly intact. Sensation grossly intact in all 4limbs EXTREMITIES: 5\5 strength bilateral upper extremities. 4+\5 strength right lower extremity. 4+/5 strength in left lower extremity. SKIN: lumbar incision with dermabond, c/d/i, sacrum without ulcer LABORATORY DATA: Please see below. PLAN: 1. Rehab- PT/OT advance mobility and ADLs, spinal precautions- ambulating with RW 2. Neuro/ortho- bilat LE weakness in setting of spinal stenosis s/p L3-L5 laminectomy and epidural drainage -monitor for worsening weakness, saddle region anesthesia, or worsening urinary incontinence, patient denies fecal incontinence -f/u spine surgeon upon dc 3. cardiac- hx of afib on xarelto, c/u betablocker -HTN c/u BP meds, adjust prn -chronic CHF c/u lasix and potassium supplements -HLD c/u statin 4. resp- MELIA on CPAP, monitor for infection, patient had recent HAP PNA 5.GI ppx- protonix 6. DVT ppx- on xarelto 7. ID- c/u Nafcillin ([facility] does not carry oxacillin) until 5-1-21, trend esr/crp, dr gonsalez consulted 8. Pain- norco, methocarbamol, Tylenol 9. Dispo- tbd Allergies Coded Allergies: No Known Drug Allergies (Verified Allergy, Unknown, 12/23/20) Vital Signs Vital Signs Date Time Temp Pulse Resp B/P (MAP) Pulse Ox O2 Delivery O2 Flow Rate FiO2 12/27/20 06:57 18 Room Air 12/27/20 04:59 97.4 87 139/85 (103) 93 Laboratory Data CBC/BMP Laboratory Tests 12/27/20 06:54 Labs 24H Laboratory Tests 2 12/26/20 11:32: Bedside Glucose (Misc Panel) 122H 12/26/20 16:29: Bedside Glucose (Misc Panel) 161H 12/26/20 19:43: Bedside Glucose (Misc Panel) 146H 12/27/20 06:35: Bedside Glucose (Misc Panel) 95 12/27/20 06:54: Immature Granulocyte % (Auto) 0.5, Neutrophils (%) (Auto) 66.9H, Lymphocytes (%) (Auto) 20.9L, Monocytes (%) (Auto) 8.4H, Eosinophils (%) (Auto) 2.5, Basophils (%) (Auto) 0.8, Neutrophils # (Auto) 5.7, Lymphocytes # (Auto) 1.8, Monocytes # (Auto) 0.7, Eosinophils # (Auto) 0.2, Basophils # (Auto) 0.1, Nucleated Red Blood Cells % (auto) 0.0, Erythrocyte Sedimentation Rate 87H, Anion Gap 6L, Glomerular Filtration Rate > 60.0, Calcium Level 9.1, C-Reactive Protein, Quantitative 5.22H Current Medications Current Medications Current Medications Medications (Trade) Dose Ordered Sig/No Route PRN Reason Start Time Stop Time Status Last Admin Dose Admin Acetaminophen (Tylenol Tab) 650 mg Q12HP PRN PO fever 12/23/20 17:45 Acetaminophen/ Hydrocodone Bitart ([place], Anexsia 5/325) 1 tab Q4HP PRN PO MILD/MODERATE PAIN (PS 1-7) 12/23/20 17:45 12/27/20 06:27 Amlodipine Besylate (Norvasc) 2.5 mg DAILY PO 12/24/20 09:00 12/26/20 08:19 Ascorbic Acid (Vitamin C) 500 mg DAILY PO 12/24/20 09:00 12/26/20 08:20 Atorvastatin Calcium (Lipitor) 10 mg QHS PO 12/23/20 21:00 12/26/20 20:20 Clotrimazole (Mycelex) 10 mg 5XD PO 12/23/20 17:00 12/25/20 16:59 DC 12/25/20 12:28 Dextrose (Dextrose 50%) 25 ml ASDIRECTED PRN IV SEE LABEL COMMENTS 12/23/20 17:45 Docusate Sodium (Colace) 100 mg BID PO 12/23/20 21:00 12/26/20 20:21 Furosemide (Lasix) 40 mg BID@09,17 PO 12/23/20 17:00 12/26/20 08:19 Glucagon (Glucagon) 1 mg ASDIRECTED PRN SC SEE LABEL COMMENTS 12/23/20 17:45 Glucose (Glucose) 16 GM ASDIRECTED PRN PO SEE LABEL COMMENTS 12/23/20 17:45 Heparin Sodium (Heparin (Flush)) 200 units ASDIRECTED PRN IV SEE LABEL COMMENTS 12/24/20 13:10 12/24/20 17:10 Home Med (Med Rec Complete!) ASDIRECTED XX 12/23/20 18:05 12/23/20 18:06 DC Hydroxyzine HCl (Atarax) 12.5 mg TID PRN PO itch 12/23/20 17:45 12/27/20 06:27 Insulin Human Lispro (HumaLOG INSULIN) SEE PROTOCOL TABLE AC SC 12/24/20 07:30 12/26/20 17:10 Insulin Human Lispro (HumaLOG INSULIN) SEE PROTOCOL TABLE QHS SC 12/23/20 21:00 Lactobacillus Acidophilus (Bacid) 1 ea TID PO 12/23/20 21:00 12/26/20 20:20 Lidocaine (Lidoderm Patch) 1 patch DAILY TD 12/25/20 09:00 12/26/20 08:25 Loratadine (Claritin) 10 mg DAILY PO 12/24/20 09:00 12/26/20 08:24 Losartan Potassium (Cozaar) 100 mg DAILY PO 12/24/20 09:00 12/26/20 08:19 Methocarbamol (Robaxin) 750 mg TID PRN PO spasm 12/23/20 17:45 12/27/20 06:27 Metoprolol Succinate (TopROL XL) 150 mg DAILY PO 12/24/20 09:00 12/26/20 08:18 Nafcillin Sodium 2 gm/Dextrose 50 ml @ 100 mls/hr Q4H IV 12/23/20 18:00 12/23/20 20:14 DC Nafcillin Sodium 2 gm/Dextrose 50 ml @ 100 mls/hr Q4H IV 12/23/20 21:00 Cancel Nafcillin Sodium 2 gm/Dextrose 50 ml @ 50 mls/hr Q4H IV 12/23/20 21:00 12/27/20 04:55 Non-Formulary Medication ( See Comment Field Below ) REMOVE LIDODERM PATCH DAILY@ XX 12/25/20 21:00 12/26/20 20:22 Nystatin (Mycostatin Powder, Nystop) apply to groin area BID TOP 12/23/20 21:00 12/26/20 20:21 Ondansetron HCl (Zofran Odt) 4 mg Q6HP PRN PO NAUSEA OR VOMITING 12/23/20 17:45 12/25/20 01:21 Pantoprazole Sodium (Protonix) 40 mg DAILY PO 12/24/20 09:00 12/26/20 08:20 Polyethylene Glycol (Miralax) 1 pkt DAILYPRN PRN PO CONSTIPATION 12/26/20 12:45 Potassium Chloride (Micro-K Extencaps) 20 meq BID PO 12/23/20 21:00 12/26/20 20:20 Rivaroxaban (Xarelto) 20 mg DAILY@18 PO 12/23/20 18:00 12/26/20 17:10 Senna (Senokot) 1 tab QHS PO 12/23/20 21:00 12/26/20 20:20 Tamsulosin HCl (Flomax) 0.4 mg QHS PO 12/23/20 21:00 12/26/20 20:21 Vitamin E (Vitamin E) 400 units DAILY PO 12/24/20 09:00 12/26/20 08:19 ARIC FISCHER MD Dec 27, 2020 08:43
[2020-12-27] MEDS: PANTOPRAZOLE 40MG TAB (PROTONIX) PO SCH (09:05)
[2020-12-27] MEDS: DOCUSATE SODIUM 100MG CAPSULE PO SCH ×2 (09:05→20:46)
[2020-12-27] MEDS: LORATADINE 10 MG TAB PO SCH (09:05)
[2020-12-27] MEDS: ASCORBIC ACID 500 MG TAB PO SCH (09:05)
[2020-12-27] MEDS: POTASSIUM CHLORIDE 10 MEQ SR TABLET PO SCH ×2 (09:06→20:44)
[2020-12-27] MEDS: METOPROLOL SUCC (TopROL XL) 50MG **XL** TAB PO SCH (09:06)
[2020-12-27] MEDS: LOSARTAN 50MG TABLET PO SCH (09:07)
[2020-12-27] MEDS: FUROSEMIDE 40 MG TAB PO SCH ×2 (09:07→16:38)
[2020-12-27] MEDS: LACTOBACILLUS ACIDOPHILUS CAP (BACID) PO SCH ×3 (09:07→20:43)
[2020-12-27] MEDS: VITAMIN E 400 INTERNATIONAL UNITS CAP PO SCH (09:07)
[2020-12-27] MEDS: LIDOCAINE 5% (LIDODERM) PATCH TD SCH (09:08)
[2020-12-27] MEDS: NYSTATIN 100,000 UNITS/GM TOPICAL PWD 15 GM TOP SCH ×2 (09:10→20:47)
[2020-12-27] MEDS: REMEDY PHYTOPLEX Z-GUARD PASTE 113GM TUBE (FROM STOREROOM PRODUCT) TOP SCH ×3 (09:11→20:48)
[2020-12-27 14:00] VITALS: BP 126/78
--- NOTE | 2020-12-27 14:24 | CR ---
CONSULTATION DATE: 12/26/2020 Asked to consult by Dr. Gregory for followup on epidural abscess with methicillin-sensitive Staphylococcus aureus (MSSA), on intravenous (IV) nafcillin. HISTORY OF PRESENT ILLNESS: Alejandro is a pleasant 65-year-old gentleman with a history of spinal stenosis and chronic low back pain, who was admitted to [facility] after he was brought down by his with worsening low back pain, fever, chills, and rigors. The patient had Staphylococcus aureus sepsis with bacteremia and L3-S1 epidural abscess. The patient underwent laminectomy, abscess drainage on 12/09/2020 from L3-5, done by Dr. Hernandez. His blood culture and epidural abscess culture grew MSSA. Urine culture was positive for klebsiella. He had dysuria on the day prior to admission. The patient also had bilateral lower extremity weakness and saddle region anesthesia, which he does still complain of numbness in that area. He was treated initially with meropenem. Then he was switched to oxacillin with a plan to be continued for a total of 8 weeks until February 01. The patient has an acute kidney injury, for which his diuretics were stopped initially and then resumed for diastolic heart failure. He has a history of atrial fibrillation, for which he was taking Xarelto. Patient was transferred to [facility] for rehabilitation, as he was still having difficulty with mobility and numbness. MEDICAL HISTORY: Significant for: 1. Morbid obesity. 2. Atrial fibrillation, on Xarelto. 3. Obstructive sleep apnea, on continuous positive airway pressure (CPAP). 4. Hypertension. 5. Diabetes. 6. Congestive heart failure. 7. History of spinal stenosis. 8. Degenerative disc disease from a work-related injury, for which he had received three sets of steroid injections done at [facility]. The first one lasted for about 6 weeks, the second 4 weeks, and the third one did not help at all. They were done through the fall of 2019. He denies any trauma to his back. SURGICAL HISTORY: 1. Status post epidural abscess drainage and laminectomy. L3-5. 2. History of melanoma of the right shoulder area resected through Mohs procedure done at [facility]. 3. History of inguinal hernia repair on the right side with removal of mesh, complicated by Methicillin-resistant Staphylococcus aureus (MRSA) infection. That was 3 y ears ago. SOCIAL HISTORY: He is . He is a retired registered nurse. He used to work at the [employer] and [employer]. He is originally from [place], and that is where he retired. He is currently on disability from worker compensation. He lives with his . He drinks occasionally. No smoking or drug use. PHYSICAL EXAMINATION: He is a pleasant gentleman only in distress whenever he is moved. Even by elevating the bed 10 degrees he was in excruciating pain from back spasm. Otherwise he is pretty comfortable, pleasant, a good historian. Temperature is 98.4, pulse 88, respirations 18, blood pressure 142/78, oxygen saturation 95% on room air. HEART: Normal S1, S2. No murmurs, rubs, or gallops. LUNGS: Clear. No wheezes, rales, or rhonchi. ABDOMEN: Obese, soft, nontender. No hepatosplenomegaly. BACK: No costovertebral angle (CVA) tenderness. Mild lumbosacral tenderness along the wound that is well healed from L5-S1. No redness surrounding the incision. EXTREMITIES: Edema +1. No clubbing or cyanosis. Right arm, 2-port peripherally inserted central catheter (PICC) line. No redness or tenderness. NEUROLOGIC: Upper extremities normal. Lower extremity was not examined, as the patient has severe spasm with any movement. REVIEW OF SYSTEMS: He has no nausea, vomiting, or diarrhea. He did have some constipation, which is now better. He has lower extremity weakness and numbness in the saddle distribution, back pain. No chest pain or shortness of breath. He is in chronic atrial fibrillation. ALLERGIES: No known drug allergies. MEDICATIONS: - MiraLax one packet daily - lidocaine patch one patch daily - pantoprazole 40 mg by mouth daily - amlodipine 2.5 mg by mouth daily - ascorbic acid 500 mg by mouth daily - vitamin E 400 units daily - Claritin 10 mg by mouth daily - losartan 100 mg by mouth daily - metoprolol 150 mg by mouth daily - nystatin powder to the groin area - Colace 100 mg by mouth twice a day - Senokot one tablet by mouth every night - Bacid one tablet by mouth three times a day - Lipitor 10 mg by mouth every night - potassium chloride 20 mEq by mouth twice a day - tamsulosin 0.4 mg by mouth every night - nafcillin 2 grams intravenous (IV) every 4 hours - Xarelto 20 mg by mouth daily - Tylenol as needed - hydrocodone one tablet by mouth every 4 as needed - Atarax 12.5 mg by mouth three times a day as needed - Robaxin 750 mg by mouth three times a day as needed spasm - Lasix 40 mg by mouth twice a day LABORATORY DATA: White count 9.6, hemoglobin 10.4, hematocrit 33.5, platelets 290, 73% neutrophils, 15% lymphocytes, 8% monocytes. ESR 140. Sodium 141, potassium 3.8, chloride 104, bicarbonate 30, BUN 12, creatinine 0.8, glucose 115, calcium 8.8. CRP 6.28. AST 24, ALT 70, alkaline phosphatase 93, albumin 2.3, total protein 6.7. No cultures were done. No imaging studies were done. 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 He underwent epidural incision and drainage (I and D) with laminectomy of the epidural abscess and is currently on IV nafcillin 2 grams every 4 hours for a total of 8 weeks with an end of therapy plan for February 01. The patient is at [facility] for rehabilitation. He still has excruciating back spasms but is lowly progressing. His dysuria has resolved. He was treated for a klebsiella urinary tract infection. PLAN: Will continue with IV nafcillin 2 grams every 4 hours for a total of 8 weeks. I would recommend adding probiotics one tablet by mouth twice a day to decrease the risk of Clostridium (C) difficile colitis. Encourage yogurt intake. Would recommend doing blood work weekly with a complete blood count (CBC), comprehensive metabolic profile (CMP), erythrocyte sedimentation rate (ESR), C-reactive protein (CRP). Patient to continue physical therapy if he improves before his IV antibiotics are done, he could finish the IV course at home as well. Case has been reviewed. His chart from [facility] was reviewed as well. The patient has been followed by Dr. Orville Buck.
--- NOTE | 2020-12-27 15:10 | IPNPDOC ---
Text Note Date of Service The patient was seen on 12/27/20. NOTE INFECTIOUS DISEASE PROGRESS NOTE SUBJECTIVE: Alejandro was seen at the bedside this morning after working with PT/ OT. He is doing well with therapy and is able to tolerate more movement than yesterday. His back pain is improved with pain killers while stationary, but he continues to note extreme back pain on palpation near the site of surgical drainage over his lumbar spine back pain at rest 4/10. He notes improved sensation in his saddle region, though it is still largely numb. He denies any acute events overnight and was able to sleep well. He denies fever, chills, coug h, chest pain, nausea or vomiting. OBJECTIVE: VITALS: See below GENERAL: The patient is a pleasant, morbidly obese gentleman, lying on his R side in his bed. He reports distress only when moved. HEENT: Normocephalic, atraumatic. HEART: Tachycardic rate, regularly irregular rhythm. Normal S1 and S2, with no murmurs, gallops or rubs appreciated. LUNGS: Lungs are clear to auscultation bilaterally, with no wheezing, rales or rhonchi appreciated. ABDOMEN: Obese, soft, and nontender. Bowel sounds are heard in all four quadrants. BACK: No costovertebral tenderness. There is mild lumbosacral tenderness around the wound from L5-S1. The lesion is nonerythematous and does not show pus or other signs of infection. EXTREMITIES: There is +1 nonpitting edema of the legs bilaterally. There is no c lubbing or cyanosis. Right arm has a 2-port peripherally inserted central catheter (PICC) line. There is no redness or tenderness of the extremities. NEURO: Upper extremities move appropriately. Lower extremities were not tested as patient has extreme pain to movement. PSYCH: Normal mood and affect. LABORATORY DATA: CBC - White count 8.6, hemoglobin 10.6, hematocrit 34.4, platelets 292, 66.9% neutrophils, 20.9% lymphocytes, 8.4% monocytes. ESR 87. BMP - Sodium 142, potassium 3.7, chloride 107, bicarbonate 29, BUN 17, creatinine 0.79, glucose 108, calcium 9.1. CRP 5.22. Liver Enzymes from 12/24 - AST 24, ALT 70, alkaline phosphatase 93, albumin 2.3, total protein 6.7. No cultures have been done. No imaging has been done. 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 He is clinically improving, afebrile with decreased pain, and consistently decreasing WBC and inflammatory markers. He is being treated with 2gm nafcillin q4hrs. The site of drainage over his L3-S1 vertebrae appears to be healing well, is nonerythematous and has no pus. PLAN: Continue to treat with IV nafcillin, 2gm Q4hrs during the day to allow for disconnection while doing physical therapy, and consider change evening dose to 6gm over 12hours in the evenings, for a total treatment of 8 weeks end of [place] 02/01/2021 Draw labs weekly for CBC with differential, comprehensive metabolic profile (CMP), erythrocyte sedimentation rate (ESR), C-reactive protein (CRP). If the patient is able to complete physical therapy before the end of his antibiotic course, he can be discharged home with PICC line to finish antibiotics at home. VS,Fishbone, I+O VS, Fishbone, I+O Laboratory Tests 12/27/20 06:54 Vital Signs Date Time Temp Pulse Resp B/P (MAP) Pulse Ox O2 Delivery O2 Flow Rate FiO2 12/27/20 14:33 18 Room Air 12/27/20 14:00 97.6 98 126/78 (94) 94 I&O- Last 24 Hours up to 6 AM 12/27/20 05:59 Intake Total 630 ml Output Total 1100 ml Balance -470 ml GME ATTESTATION GME ATTESTATION My faculty preceptor for this patient encounter was physically present during the encounter and was fully available. All aspects of the patient interview, examination, medical decision making process, and medical care plan development were reviewed and approved by the faculty preceptor. The faculty preceptor is aware and concurs with the plan as stated in the body of this note and will attest to such by his/her cosignature. TIFFANIE MALLORY Dec 27, 2020 15:10 Rodrick Park MD Dec 27, 2020 16:02
[2020-12-27] MEDS: RIVAROXABAN 20 MG TAB (XARELTO) PO SCH (17:30)
[2020-12-27 20:00] VITALS: BP 145/88
[2020-12-27] MEDS: ATORVASTATIN 10 MG TAB PO SCH (20:44)
[2020-12-27] MEDS: TAMSULOSIN 0.4 MG CAP PO SCH (20:44)
[2020-12-27] MEDS: SENNA 8.6 MG TAB (SENOKOT) PO SCH (20:46)
[2020-12-27] MEDS: **NOTE PATIENT COMMENT** MISC XX SCH (20:50)
[2020-12-28] MEDS: NAFCILLIN SOD 2 GM in D5W MINI-BAG PLUS 50 ML IV SCH ×6 (01:16→20:31)
[2020-12-28] MEDS: NORCO, ANEXSIA 5/325MG TABLET (HYDROcodone/ACETAMINOPHEN) PO PRN ×4 (04:53→20:33)
[2020-12-28 06:00] VITALS: BP 139/93
[2020-12-28] MEDS: methocarbamoL 750 MG TAB PO PRN ×3 (06:20→20:30)
[2020-12-28] MEDS: LIDOCAINE 5% (LIDODERM) PATCH TD SCH (08:50)
[2020-12-28] MEDS: VITAMIN E 400 INTERNATIONAL UNITS CAP PO SCH (08:50)
[2020-12-28] MEDS: METOPROLOL SUCC (TopROL XL) 50MG **XL** TAB PO SCH (08:51)
[2020-12-28] MEDS: LORATADINE 10 MG TAB PO SCH (08:51)
[2020-12-28] MEDS: LOSARTAN 50MG TABLET PO SCH (08:51)
[2020-12-28] MEDS: FUROSEMIDE 40 MG TAB PO SCH ×2 (08:51→16:24)
[2020-12-28] MEDS: ASCORBIC ACID 500 MG TAB PO SCH (08:52)
[2020-12-28] MEDS: REMEDY PHYTOPLEX Z-GUARD PASTE 113GM TUBE (FROM STOREROOM PRODUCT) TOP SCH ×3 (08:52→20:32)
[2020-12-28] MEDS: NYSTATIN 100,000 UNITS/GM TOPICAL PWD 15 GM TOP SCH ×2 (08:52→20:31)
[2020-12-28] MEDS: POTASSIUM CHLORIDE 10 MEQ SR TABLET PO SCH ×2 (08:52→20:31)
[2020-12-28] MEDS: PANTOPRAZOLE 40MG TAB (PROTONIX) PO SCH (08:52)
[2020-12-28] MEDS: LACTOBACILLUS ACIDOPHILUS CAP (BACID) PO SCH ×3 (08:52→20:30)
[2020-12-28] MEDS: DOCUSATE SODIUM 100MG CAPSULE PO SCH ×2 (08:53→20:31)
[2020-12-28] MEDS: HumaLOG INSULIN (NovoLOG) PER UNIT SC SCH ×4 (08:53→20:31)
[2020-12-28 14:00] VITALS: BP 139/71
[2020-12-28] MEDS: hydrOXYzine 25 MG TAB PO PRN (16:27)
[2020-12-28] MEDS: RIVAROXABAN 20 MG TAB (XARELTO) PO SCH (17:55)
[2020-12-28] MEDS: SODIUM CHLORIDE 0.9% INJ 10 ML SYR IV SCH (17:56)
[2020-12-28 20:00] VITALS: BP 149/84
[2020-12-28] MEDS: ATORVASTATIN 10 MG TAB PO SCH (20:30)
[2020-12-28] MEDS: TAMSULOSIN 0.4 MG CAP PO SCH (20:30)
[2020-12-28] MEDS: SENNA 8.6 MG TAB (SENOKOT) PO SCH (20:31)
[2020-12-28] MEDS: **NOTE PATIENT COMMENT** MISC XX SCH (20:35)
[2020-12-29] MEDS: NAFCILLIN SOD 2 GM in D5W MINI-BAG PLUS 50 ML IV SCH ×6 (01:02→21:11)
[2020-12-29 05:32] VITALS: BP 158/88
[2020-12-29] MEDS: methocarbamoL 750 MG TAB PO PRN ×2 (06:26→16:29)
[2020-12-29] MEDS: NORCO, ANEXSIA 5/325MG TABLET (HYDROcodone/ACETAMINOPHEN) PO PRN ×4 (06:26→21:10)
[2020-12-29] MEDS: SODIUM CHLORIDE 0.9% INJ 10 ML SYR IV SCH ×2 (06:27→17:13)
[2020-12-29] MEDS: HumaLOG INSULIN (NovoLOG) PER UNIT SC SCH ×4 (07:30→20:45)
[2020-12-29] MEDS: DOCUSATE SODIUM 100MG CAPSULE PO SCH ×2 (09:00→21:09)
[2020-12-29] MEDS: LACTOBACILLUS ACIDOPHILUS CAP (BACID) PO SCH ×3 (09:05→21:09)
[2020-12-29] MEDS: METOPROLOL SUCC (TopROL XL) 50MG **XL** TAB PO SCH (09:05)
[2020-12-29] MEDS: LOSARTAN 50MG TABLET PO SCH (09:05)
[2020-12-29] MEDS: FUROSEMIDE 40 MG TAB PO SCH ×2 (09:06→16:29)
[2020-12-29] MEDS: LORATADINE 10 MG TAB PO SCH (09:06)
[2020-12-29] MEDS: POTASSIUM CHLORIDE 10 MEQ SR TABLET PO SCH ×2 (09:06→21:10)
[2020-12-29] MEDS: VITAMIN E 400 INTERNATIONAL UNITS CAP PO SCH (09:06)
[2020-12-29] MEDS: PANTOPRAZOLE 40MG TAB (PROTONIX) PO SCH (09:06)
[2020-12-29] MEDS: ASCORBIC ACID 500 MG TAB PO SCH (09:06)
[2020-12-29] MEDS: SODIUM CHLORIDE 0.9% INJ 10 ML SYR IV PRN ×2 (09:07→12:07)
[2020-12-29] MEDS: LIDOCAINE 5% (LIDODERM) PATCH TD SCH (09:08)
[2020-12-29] MEDS: NYSTATIN 100,000 UNITS/GM TOPICAL PWD 15 GM TOP SCH ×2 (09:10→21:11)
[2020-12-29] MEDS: REMEDY PHYTOPLEX Z-GUARD PASTE 113GM TUBE (FROM STOREROOM PRODUCT) TOP SCH ×3 (09:10→21:11)
[2020-12-29] MEDS: hydrOXYzine 25 MG TAB PO PRN ×2 (10:58→21:10)
[2020-12-29 14:00] VITALS: BP 148/80
[2020-12-29] MEDS: RIVAROXABAN 20 MG TAB (XARELTO) PO SCH (17:12)
[2020-12-29 20:00] VITALS: BP 157/75
[2020-12-29] MEDS: SENNA 8.6 MG TAB (SENOKOT) PO SCH (21:09)
[2020-12-29] MEDS: ATORVASTATIN 10 MG TAB PO SCH (21:09)
[2020-12-29] MEDS: TAMSULOSIN 0.4 MG CAP PO SCH (21:09)
[2020-12-29] MEDS: **NOTE PATIENT COMMENT** MISC XX SCH (21:11)
[2020-12-30] MEDS: NAFCILLIN SOD 2 GM in D5W MINI-BAG PLUS 50 ML IV SCH ×6 (00:52→21:00)
[2020-12-30] MEDS: SODIUM CHLORIDE 0.9% INJ 10 ML SYR IV PRN ×3 (02:25→22:20)
[2020-12-30 05:45] VITALS: BP 135/77
[2020-12-30] MEDS: methocarbamoL 750 MG TAB PO PRN ×2 (06:30→19:49)
[2020-12-30] MEDS: NORCO, ANEXSIA 5/325MG TABLET (HYDROcodone/ACETAMINOPHEN) PO PRN ×3 (06:30→19:49)
[2020-12-30] MEDS: SODIUM CHLORIDE 0.9% INJ 10 ML SYR IV SCH ×2 (06:30→17:44)
[2020-12-30] MEDS: hydrOXYzine 25 MG TAB PO PRN ×2 (06:30→19:49)
[2020-12-30 06:33] LABS: BASO % 0.5 % (0.0-1.0); EOS # 0.2 10^3/uL (0.0-0.5); EOS % 3.5 % (0.0-3.0); HEMATOCRIT 32.4 % (42.0-52.0); HEMOGLOBIN 10.2 g/dl (13.5-17.5); LYMPH # 1.5 10^3/uL (1.5-5.0); LYMPH % 22.4 % (24.0-44.0); MEAN CORPUSCULAR HEMOGLOBIN 28.5 pg (27.0-33.0); MEAN CORPUSCULAR HGB CONC 31.5 g/dl (32.0-36.5); MEAN CORPUSCULAR VOLUME 90.5 fl (80.0-96.0); MONO # 0.6 10^3/uL (0.0-0.8); MONO % 9.6 % (2.0-8.0); NEUTROPHILS # 4.2 10^3/uL (1.5-8.5); NEUTROPHILS % 63.5 % (36.0-66.0); PLATELET COUNT, AUTOMATED 251 10^3/uL (150-450); RED BLOOD COUNT 3.58 10^6/uL (4.30-6.10); WHITE BLOOD COUNT 6.5 10^3/uL (4.0-10.0)
[2020-12-30 06:51] LABS: BLOOD UREA NITROGEN 15 MG/DL (7-18); C REACTIVE PROTEIN QUANTITATIV 3.33 MG/DL (0.00-0.30); CALCIUM LEVEL 8.8 MG/DL (8.8-10.2); CARBON DIOXIDE LEVEL 29 MEQ/L (21-32); CHLORIDE LEVEL 108 MEQ/L (98-107); CREATININE FOR GFR 0.85 MG/DL (0.70-1.30); GLOMERULAR FILTRATION RATE > 60.0 (>49); GLUCOSE, FASTING 115 MG/DL (70-100); POTASSIUM SERUM 3.7 MEQ/L (3.5-5.1); SODIUM LEVEL 142 MEQ/L (136-145)
[2020-12-30 07:06] LABS: ERYTHROCYTE SEDIMENTATION RATE 83 mm/hr (0-20)
[2020-12-30] MEDS: REMEDY PHYTOPLEX Z-GUARD PASTE 113GM TUBE (FROM STOREROOM PRODUCT) TOP SCH ×3 (09:00→21:01)
[2020-12-30] MEDS: DOCUSATE SODIUM 100MG CAPSULE PO SCH ×2 (09:00→20:59)
[2020-12-30] MEDS: HumaLOG INSULIN (NovoLOG) PER UNIT SC SCH ×4 (09:25→20:35)
[2020-12-30] MEDS: PANTOPRAZOLE 40MG TAB (PROTONIX) PO SCH (09:28)
[2020-12-30] MEDS: MIRALAX *UNIT DOSE* 17GM PACKET PO PRN (09:28)
[2020-12-30] MEDS: FUROSEMIDE 40 MG TAB PO SCH ×2 (09:28→17:43)
[2020-12-30] MEDS: LACTOBACILLUS ACIDOPHILUS CAP (BACID) PO SCH ×3 (09:29→20:59)
[2020-12-30] MEDS: LORATADINE 10 MG TAB PO SCH (09:29)
[2020-12-30] MEDS: ASCORBIC ACID 500 MG TAB PO SCH (09:29)
[2020-12-30] MEDS: VITAMIN E 400 INTERNATIONAL UNITS CAP PO SCH (09:29)
[2020-12-30] MEDS: POTASSIUM CHLORIDE 10 MEQ SR TABLET PO SCH ×2 (09:29→21:00)
[2020-12-30] MEDS: LOSARTAN 50MG TABLET PO SCH (09:31)
[2020-12-30] MEDS: METOPROLOL SUCC (TopROL XL) 50MG **XL** TAB PO SCH (09:32)
[2020-12-30] MEDS: NYSTATIN 100,000 UNITS/GM TOPICAL PWD 15 GM TOP SCH ×2 (09:33→21:01)
[2020-12-30] MEDS: LIDOCAINE 5% (LIDODERM) PATCH TD SCH (09:33)
[2020-12-30 14:00] VITALS: BP 138/81
[2020-12-30] MEDS: RIVAROXABAN 20 MG TAB (XARELTO) PO SCH (17:42)
[2020-12-30 20:00] VITALS: BP 135/83
[2020-12-30] MEDS: **NOTE PATIENT COMMENT** MISC XX SCH (20:35)
[2020-12-30] MEDS: SENNA 8.6 MG TAB (SENOKOT) PO SCH (21:00)
[2020-12-30] MEDS: TAMSULOSIN 0.4 MG CAP PO SCH (21:00)
[2020-12-30] MEDS: ATORVASTATIN 10 MG TAB PO SCH (21:00)
--- NOTE | 2020-12-30 22:13 | IPNPDOC ---
Text Note Date of Service The patient was seen on 12/30/20. NOTE INFECTIOUS DISEASE PROGRESS NOTE SUBJECTIVE: Alejandro was seen at bedside this afternoon. He is continuing to work with PT/OT, and today is managing to walk a few steps up the stairs. He is walking to the bathroom with assistance to use the toilet, and has increased sensation to urinary and fecal urge. He has increased sensation to his saddle region, though it is still largely numb. He is increasing his personal grooming such as shaving his face and head. He rates his back pain as 6/10 when stationary and 9 /10 when he moves or experiences a spasm. He denies any acute events overnight and was able to sleep well. He denies fever, chills, cough, chest pain, nausea or vomiting. OBJECTIVE: VITALS: See below GENERAL: The patient is a pleasant, morbidly obese gentleman, lying on his R side in his bed. He reports distress only when moved. HEENT: Normocephalic, atraumatic. His face and cranium have been shaved. HEART: Regular rate, regularly irregular rhythm. Normal S1 and S2, with no murmurs, gallops or rubs appreciated. LUNGS: Lungs are clear to auscultation bilaterally, with no wheezing, rales or rhonchi appreciated. Deep inhalation causes intense back pain. ABDOMEN: Obese, soft, and nontender. Bowel sounds are heard in all four quadrants. BACK: No costovertebral tenderness. There is mild lumbosacral tenderness around the wound from L5-S1.The site of drainage over his L3-S1 vertebrae appears to be healing well, is nonerythematous and has no pus. EXTREMITIES: There is +1 nonpitting edema of the right leg and trace pitting edema of the left leg. There is no clubbing or cyanosis. Right arm has a 2-port peripherally inserted central catheter (PICC) line. There is no redness or tenderness of the extremities. NEURO: Upper extremities move appropriately. Lower extremities can move somewhat without causing pain, bends knee, hip flexion causes spasms PSYCH: Normal mood and affect. LABORATORY DATA: CBC - White count 6.5, hemoglobin 10.2, hematocrit 32.4, platelets 251, 63.5% neutrophils, 22.4% lymphocytes, 9.6% monocytes. ESR 83. BMP - Sodium 142, potassium 3.7, chloride 108, bicarbonate 29, BUN 15, creatinine 0.85, glucose 115, calcium 8.8. CRP 3.33. Liver Enzymes from 12/24 - AST 24, ALT 70, alkaline phosphatase 93, albumin 2.3, total protein 6.7. No cultures have been done. No imaging has been done. 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 for rehabilitation. He is clinically improving, afebrile with decreased pain, and consistently decreasing WBC and inflammatory markers. He is being treated with 2gm nafcillin q4hrs . PLAN: 1-Continue to treat with IV nafcillin, 2gm Q4hrs for a total treatment of 8 weeks end of [place] 02/01/2021. 2-Draw labs weekly for CBC with differential, comprehensive metabolic profile (CMP), erythrocyte sedimentation rate (ESR), C-reactive protein (CRP). 3- If the patient is able to complete physical therapy before the end of his antibiotic course, he can be discharged home with PICC line to finish antibiotics at home. VS,Fishbone, I+O VS, Fishbone, I+O Laboratory Tests 12/30/20 06:06 Vital Signs Date Time Temp Pulse Resp B/P (MAP) Pulse Ox O2 Delivery O2 Flow Rate FiO2 12/30/20 20:19 18 12/30/20 20:00 97.4 84 135/83 (100) 96 Room Air I&O- Last 24 Hours up to 6 AM 12/30/20 06:00 Intake Total 1620 ml Output Total 2350 ml Balance -730 ml GME ATTESTATION GME ATTESTATION My faculty preceptor for this patient encounter was physically present during the encounter and was fully available. All aspects of the patient interview, examination, medical decision making process, and medical care plan development were reviewed and approved by the faculty preceptor. The faculty preceptor is aware and concurs with the plan as stated in the body of this note and will attest to such by his/her cosignature. TIFFANIE MALLORY Dec 30, 2020 22:13 Rodrick Park MD Dec 31, 2020 22:05
[2020-12-31] MEDS: NAFCILLIN SOD 2 GM in D5W MINI-BAG PLUS 50 ML IV SCH ×6 (00:53→20:39)
[2020-12-31] MEDS: SODIUM CHLORIDE 0.9% INJ 10 ML SYR IV PRN ×3 (02:23→22:00)
[2020-12-31] MEDS: NORCO, ANEXSIA 5/325MG TABLET (HYDROcodone/ACETAMINOPHEN) PO PRN ×4 (02:26→20:38)
[2020-12-31 06:00] VITALS: BP 149/86
[2020-12-31] MEDS: SODIUM CHLORIDE 0.9% INJ 10 ML SYR IV SCH ×2 (06:18→18:00)
[2020-12-31] MEDS: HumaLOG INSULIN (NovoLOG) PER UNIT SC SCH ×4 (07:47→20:27)
[2020-12-31] MEDS: REMEDY PHYTOPLEX Z-GUARD PASTE 113GM TUBE (FROM STOREROOM PRODUCT) TOP SCH ×3 (09:00→20:39)
[2020-12-31] MEDS: DOCUSATE SODIUM 100MG CAPSULE PO SCH ×3 (09:00→20:42)
[2020-12-31] MEDS: LORATADINE 10 MG TAB PO SCH (09:30)
[2020-12-31] MEDS: ASCORBIC ACID 500 MG TAB PO SCH (09:30)
[2020-12-31] MEDS: VITAMIN E 400 INTERNATIONAL UNITS CAP PO SCH (09:30)
[2020-12-31] MEDS: LIDOCAINE 5% (LIDODERM) PATCH TD SCH (09:30)
[2020-12-31] MEDS: PANTOPRAZOLE 40MG TAB (PROTONIX) PO SCH (09:31)
[2020-12-31] MEDS: LOSARTAN 50MG TABLET PO SCH (09:31)
[2020-12-31] MEDS: METOPROLOL SUCC (TopROL XL) 50MG **XL** TAB PO SCH (09:31)
[2020-12-31] MEDS: FUROSEMIDE 40 MG TAB PO SCH ×2 (09:31→18:00)
[2020-12-31] MEDS: LACTOBACILLUS ACIDOPHILUS CAP (BACID) PO SCH ×3 (09:31→20:37)
[2020-12-31] MEDS: POTASSIUM CHLORIDE 10 MEQ SR TABLET PO SCH ×2 (09:32→20:38)
[2020-12-31] MEDS: methocarbamoL 750 MG TAB PO PRN ×2 (09:33→20:38)
[2020-12-31] MEDS: hydrOXYzine 25 MG TAB PO PRN ×2 (09:34→20:38)
[2020-12-31] MEDS: NYSTATIN 100,000 UNITS/GM TOPICAL PWD 15 GM TOP SCH ×2 (09:35→20:39)
[2020-12-31 14:00] VITALS: BP 114/62
[2020-12-31] MEDS: RIVAROXABAN 20 MG TAB (XARELTO) PO SCH (18:00)
[2020-12-31 20:00] VITALS: BP 133/75
[2020-12-31] MEDS: TAMSULOSIN 0.4 MG CAP PO SCH (20:37)
[2020-12-31] MEDS: ATORVASTATIN 10 MG TAB PO SCH (20:37)
[2020-12-31] MEDS: SENNA 8.6 MG TAB (SENOKOT) PO SCH ×2 (20:38→20:42)
[2020-12-31] MEDS: **NOTE PATIENT COMMENT** MISC XX SCH (20:39)
[2021-01-01] MEDS: NAFCILLIN SOD 2 GM in D5W MINI-BAG PLUS 50 ML IV SCH ×6 (00:50→21:01)
[2021-01-01] MEDS: SODIUM CHLORIDE 0.9% INJ 10 ML SYR IV PRN ×3 (02:23→12:21)
[2021-01-01] MEDS: NORCO, ANEXSIA 5/325MG TABLET (HYDROcodone/ACETAMINOPHEN) PO PRN ×5 (02:28→21:08)
[2021-01-01 05:01] VITALS: BP 135/95
[2021-01-01] MEDS: SODIUM CHLORIDE 0.9% INJ 10 ML SYR IV SCH ×2 (06:19→17:20)
[2021-01-01] MEDS: hydrOXYzine 25 MG TAB PO PRN ×2 (06:37→21:03)
[2021-01-01] MEDS: methocarbamoL 750 MG TAB PO PRN (06:37)
[2021-01-01] MEDS: HumaLOG INSULIN (NovoLOG) PER UNIT SC SCH ×4 (07:30→21:00)
[2021-01-01 07:32] LABS: BASO # 0.1 10^3/uL (0.0-0.2); BASO % 0.8 % (0.0-1.0); EOS # 0.3 10^3/uL (0.0-0.5); EOS % 3.6 % (0.0-3.0); HEMATOCRIT 34.4 % (42.0-52.0); HEMOGLOBIN 10.5 g/dl (13.5-17.5); LYMPH # 1.9 10^3/uL (1.5-5.0); LYMPH % 26.3 % (24.0-44.0); MEAN CORPUSCULAR HEMOGLOBIN 28.2 pg (27.0-33.0); MEAN CORPUSCULAR HGB CONC 30.5 g/dl (32.0-36.5); MEAN CORPUSCULAR VOLUME 92.5 fl (80.0-96.0); MONO # 0.7 10^3/uL (0.0-0.8); MONO % 9.9 % (2.0-8.0); NEUTROPHILS # 4.2 10^3/uL (1.5-8.5); NEUTROPHILS % 59.1 % (36.0-66.0); PLATELET COUNT, AUTOMATED 293 10^3/uL (150-450); RED BLOOD COUNT 3.72 10^6/uL (4.30-6.10); WHITE BLOOD COUNT 7.2 10^3/uL (4.0-10.0)
[2021-01-01 07:56] LABS: BLOOD UREA NITROGEN 17 MG/DL (7-18); CALCIUM LEVEL 9.4 MG/DL (8.8-10.2); CARBON DIOXIDE LEVEL 31 MEQ/L (21-32); CHLORIDE LEVEL 106 MEQ/L (98-107); CREATININE FOR GFR 0.77 MG/DL (0.70-1.30); GLOMERULAR FILTRATION RATE > 60.0 (>49); GLUCOSE, FASTING 110 MG/DL (70-100); POTASSIUM SERUM 3.9 MEQ/L (3.5-5.1); SODIUM LEVEL 142 MEQ/L (136-145)
[2021-01-01] MEDS: DOCUSATE SODIUM 100MG CAPSULE PO SCH ×2 (08:35→21:00)
[2021-01-01 09:00] VITALS: BP 137/75
[2021-01-01] MEDS: FUROSEMIDE 40 MG TAB PO SCH ×2 (09:09→17:19)
[2021-01-01] MEDS: POTASSIUM CHLORIDE 10 MEQ SR TABLET PO SCH ×2 (09:09→21:03)
[2021-01-01] MEDS: ASCORBIC ACID 500 MG TAB PO SCH (09:10)
[2021-01-01] MEDS: METOPROLOL SUCC (TopROL XL) 50MG **XL** TAB PO SCH (09:10)
[2021-01-01] MEDS: VITAMIN E 400 INTERNATIONAL UNITS CAP PO SCH (09:11)
[2021-01-01] MEDS: PANTOPRAZOLE 40MG TAB (PROTONIX) PO SCH (09:11)
[2021-01-01] MEDS: LACTOBACILLUS ACIDOPHILUS CAP (BACID) PO SCH ×3 (09:11→21:01)
[2021-01-01] MEDS: LOSARTAN 50MG TABLET PO SCH (09:11)
[2021-01-01] MEDS: LORATADINE 10 MG TAB PO SCH (09:11)
[2021-01-01] MEDS: LIDOCAINE 5% (LIDODERM) PATCH TD SCH (09:12)
[2021-01-01] MEDS: REMEDY PHYTOPLEX Z-GUARD PASTE 113GM TUBE (FROM STOREROOM PRODUCT) TOP SCH ×3 (09:13→21:05)
[2021-01-01] MEDS: NYSTATIN 100,000 UNITS/GM TOPICAL PWD 15 GM TOP SCH ×2 (09:13→21:05)
[2021-01-01 14:00] VITALS: BP 115/64
--- NOTE | 2021-01-01 15:21 | IPNPDOC ---
PM&R Progress Note DATE OF SERVICE: Jan 01, 2021 Green Building Engineer Progress Note Subjective: Patient reporting he woke up in the middle of the night with back spasms and is interested in trying an alternative muscle relaxant at night. He denies having new weakness. REVIEW OF SYSTEMS: The following is a completed review of systems and has been r eviewed. Review of systems otherwise unremarkable. PAIN: Patient self reports left lateral hip pain EYES: No recent vision changes EARS, NOSE, & THROAT: No throat pain, or dysphagia, or rhinorrhea CARDIOVASCULAR: Denies chest pain or palpitations PULMONARY: Denies shortness of breath GASTROINTESTINAL: Denies constipation/diarrhea GENITOURINARY: +urinary incontinence (improving) MUSCULOSKELETAL: LE weakness NEUROLOGICAL:LE paresthesias HEMATOLOGICAL: denies easy bruising SKIN: lumbar incision PSYCHIATRIC: Unremarkable All other review of systems found to be negative. PHYSICAL EXAMINATION: VITAL SIGNS: Please see below. GENERAL: Pleasant and cooperative. No acute distress. HEENT: PERRL. Extraocular movements intact. Clear conjunctiva CARDIOVASCULAR: Regular rate and rhythm. No murmurs, rubs, or gallops LUNGS: Clear to auscultation bilaterally. No wheezes. No rhonchi ABDOMEN: Soft, nontender, nondistended. Positive bowel sounds. Normal active bowel sounds NEUROLOGICAL: Alert and oriented times three. Cranial nerves II through XII grossly intact. Sensation grossly intact in all 4limbs EXTREMITIES: 5\5 strength bilateral upper extremities. 4+\5 strength right lower extremity. 4+/5 strength in left lower extremity. SKIN: lumbar incision with dermabond, c/d/i, sacrum without ulcer LABORATORY DATA: Please see below. PLAN: 1. Rehab- PT/OT advance mobility and ADLs, spinal precautions- ambulating further with RW 2. Neuro/ortho- bilat LE weakness in setting of spinal stenosis s/p L3-L5 laminectomy and epidural drainage -monitor for worsening weakness, saddle region anesthesia, or worsening urinary incontinence, patient denies fecal incontinence -f/u spine surgeon upon dc 3. cardiac- hx of afib on xarelto, c/u betablocker -HTN c/u BP meds, adjust prn -chronic CHF c/u lasix and potassium supplements -HLD c/u statin 4. resp- MELIA on CPAP, monitor for infection, patient had recent HAP PNA 5.GI ppx- protonix 6. DVT ppx- on xarelto 7. ID- c/u Nafcillin ([facility] does not carry oxacillin) until 02-01-21, trend esr/crp, dr gonsalez consulted 8. Pain- norco, methocarbamol, Tylenol -will add baclofen qHS for spasms 9. Dispo- tbd Allergies Coded Allergies: No Known Drug Allergies (Verified Allergy, Unknown, 12/23/20) Vital Signs Vital Signs Date Time Temp Pulse Resp B/P (MAP) Pulse Ox O2 Delivery O2 Flow Rate FiO2 01/01/21 14:00 97.7 95 18 115/64 (81) 96 Room Air Laboratory Data CBC/BMP Laboratory Tests 01/01/21 07:03 Labs 24H Laboratory Tests 2 12/31/20 16:26: Bedside Glucose (Misc Panel) 159H 12/31/20 20:26: Bedside Glucose (Misc Panel) 134H 01/01/21 06:18: Bedside Glucose (Misc Panel) 106 01/01/21 07:03: Immature Granulocyte % (Auto) 0.3, Neutrophils (%) (Auto) 59.1, Lymphocytes (%) (Auto) 26.3, Monocytes (%) (Auto) 9.9H, Eosinophils (%) (Auto) 3.6H, Basophils (%) (Auto) 0.8, Neutrophils # (Auto) 4.2, Lymphocytes # (Auto) 1.9, Monocytes # (Auto) 0.7, Eosinophils # (Auto) 0.3, Basophils # (Auto) 0.1, Nucleated Red Blood Cells % (auto) 0.0, Anion Gap 5L, Glomerular Filtration Rate > 60.0, Calcium Level 9.4 01/01/21 11:31: Bedside Glucose (Misc Panel) 92 Current Medications Current Medications Current Medications Medications (Trade) Dose Ordered Sig/No Route PRN Reason Start Time Stop Time Status Last Admin Dose Admin Acetaminophen (Tylenol Tab) 650 mg Q12HP PRN PO fever 12/23/20 17:45 Acetaminophen/ Hydrocodone Bitart ([place], Anexsia 5/325) 1 tab Q4HP PRN PO MILD/MODERATE PAIN (PS 1-7) 12/23/20 17:45 01/01/21 11:37 Amlodipine Besylate (Norvasc) 2.5 mg DAILY PO 12/24/20 09:00 01/01/21 09:10 Ascorbic Acid (Vitamin C) 500 mg DAILY PO 12/24/20 09:00 01/01/21 09:10 Atorvastatin Calcium (Lipitor) 10 mg QHS PO 12/23/20 21:00 12/31/20 20:37 Clotrimazole (Mycelex) 10 mg 5XD PO 12/23/20 17:00 12/25/20 16:59 DC 12/25/20 12:28 Dextrose (Dextrose 50%) 25 ml ASDIRECTED PRN IV SEE LABEL COMMENTS 12/23/20 17:45 Docusate Sodium (Colace) 100 mg BID PO 12/23/20 21:00 12/30/20 20:59 Furosemide (Lasix) 40 mg BID@09,17 PO 12/23/20 17:00 01/01/21 09:09 Glucagon (Glucagon) 1 mg ASDIRECTED PRN SC SEE LABEL COMMENTS 12/23/20 17:45 Glucose (Glucose) 16 GM ASDIRECTED PRN PO SEE LABEL COMMENTS 12/23/20 17:45 Heparin Sodium (Heparin (Flush)) 200 units ASDIRECTED PRN IV SEE LABEL COMMENTS 12/24/20 13:10 12/28/20 22:02 Heparin Sodium (Heparin (Flush)) 200 units ASDIRECTED PRN IV SEE LABEL COMMENTS 12/28/20 13:45 01/01/21 12:20 Heparin Sodium (Heparin (Flush)) 200 units PICC IV 12/28/20 18:00 01/01/21 06:19 Home Med (Med Rec Complete!) ASDIRECTED XX 12/23/20 18:05 12/23/20 18:06 DC Hydroxyzine HCl (Atarax) 12.5 mg TID PRN PO itch 12/23/20 17:45 01/01/21 06:37 Insulin Human Lispro (HumaLOG INSULIN) SEE PROTOCOL TABLE AC SC 12/24/20 07:30 12/31/20 18:01 Insulin Human Lispro (HumaLOG INSULIN) SEE PROTOCOL TABLE QHS SC 12/23/20 21:00 Lactobacillus Acidophilus (Bacid) 1 ea TID PO 12/23/20 21:00 01/01/21 09:11 Lidocaine (Lidoderm Patch) 1 patch DAILY TD 12/25/20 09:00 01/01/21 09:12 Loratadine (Claritin) 10 mg DAILY PO 12/24/20 09:00 01/01/21 09:11 Losartan Potassium (Cozaar) 100 mg DAILY PO 12/24/20 09:00 01/01/21 09:11 Methocarbamol (Robaxin) 750 mg TID PRN PO spasm 12/23/20 17:45 01/01/21 06:37 Metoprolol Succinate (TopROL XL) 150 mg DAILY PO 12/24/20 09:00 01/01/21 09:10 Nafcillin Sodium 2 gm/Dextrose 50 ml @ 100 mls/hr Q4H IV 12/23/20 18:00 12/23/20 20:14 DC Nafcillin Sodium 2 gm/Dextrose 50 ml @ 100 mls/hr Q4H IV 12/23/20 21:00 Cancel Nafcillin Sodium 2 gm/Dextrose 50 ml @ 50 mls/hr Q4H IV 12/23/20 21:00 01/01/21 12:20 Non-Formulary Medication ( See Comment Field Below ) REMOVE LIDODERM PATCH DAILY@21 XX 12/25/20 21:00 12/31/20 20:39 Nystatin (Mycostatin Powder, Nystop) apply to groin area BID TOP 12/23/20 21:00 01/01/21 09:13 Ondansetron HCl (Zofran Odt) 4 mg Q6HP PRN PO NAUSEA OR VOMITING 12/23/20 17:45 12/25/20 01:21 Pantoprazole Sodium (Protonix) 40 mg DAILY PO 12/24/20 09:00 01/01/21 09:11 Polyethylene Glycol (Miralax) 1 pkt DAILYPRN PRN PO CONSTIPATION 12/26/20 12:45 12/30/20 09:28 Potassium Chloride (Micro-K Extencaps) 20 meq BID PO 12/23/20 21:00 01/01/21 09:09 Rivaroxaban (Xarelto) 20 mg DAILY@18 PO 12/23/20 18:00 12/31/20 18:00 Senna (Senokot) 1 tab QHS PO 12/23/20 21:00 12/30/20 21:00 Sodium Chloride (Saline Lock Flush) 10 ml ASDIRECTED PRN IV SEE LABEL COMMENTS 12/28/20 13:45 01/01/21 12:21 Sodium Chloride (Saline Lock Flush) 10 ml PICC IV 12/28/20 18:00 01/01/21 06:19 Tamsulosin HCl (Flomax) 0.4 mg QHS PO 12/23/20 21:00 12/31/20 20:37 Vitamin E (Vitamin E) 400 units DAILY PO 12/24/20 09:00 01/01/21 09:11 ARIC FISCHER MD Jan 01, 2021 15:21
[2021-01-01] MEDS: RIVAROXABAN 20 MG TAB (XARELTO) PO SCH (17:19)
[2021-01-01 20:00] VITALS: BP 132/59
[2021-01-01] MEDS: SENNA 8.6 MG TAB (SENOKOT) PO SCH (21:00)
[2021-01-01] MEDS: BACLOFEN 5MG PER 1/2 TABLET PO SCH (21:01)
[2021-01-01] MEDS: TAMSULOSIN 0.4 MG CAP PO SCH (21:02)
[2021-01-01] MEDS: ATORVASTATIN 10 MG TAB PO SCH (21:02)
[2021-01-01] MEDS: **NOTE PATIENT COMMENT** MISC XX SCH (21:05)
[2021-01-02] MEDS: NAFCILLIN SOD 2 GM in D5W MINI-BAG PLUS 50 ML IV SCH ×6 (01:05→21:03)
[2021-01-02 05:16] VITALS: BP 162/96
[2021-01-02] MEDS: SODIUM CHLORIDE 0.9% INJ 10 ML SYR IV SCH ×2 (06:17→16:54)
[2021-01-02] MEDS: methocarbamoL 750 MG TAB PO PRN (07:27)
[2021-01-02] MEDS: hydrOXYzine 25 MG TAB PO PRN ×2 (07:27→21:00)
[2021-01-02] MEDS: NORCO, ANEXSIA 5/325MG TABLET (HYDROcodone/ACETAMINOPHEN) PO PRN ×4 (07:28→21:02)
[2021-01-02] MEDS: HumaLOG INSULIN (NovoLOG) PER UNIT SC SCH ×2 (07:30→11:39)
[2021-01-02] MEDS: DOCUSATE SODIUM 100MG CAPSULE PO SCH ×2 (07:41→21:00)
[2021-01-02] MEDS: LIDOCAINE 5% (LIDODERM) PATCH TD SCH (08:24)
[2021-01-02] MEDS: FUROSEMIDE 40 MG TAB PO SCH ×2 (08:25→16:07)
[2021-01-02] MEDS: VITAMIN E 400 INTERNATIONAL UNITS CAP PO SCH (08:25)
[2021-01-02] MEDS: METOPROLOL SUCC (TopROL XL) 50MG **XL** TAB PO SCH (08:25)
[2021-01-02] MEDS: PANTOPRAZOLE 40MG TAB (PROTONIX) PO SCH (08:25)
[2021-01-02] MEDS: ASCORBIC ACID 500 MG TAB PO SCH (08:25)
[2021-01-02] MEDS: LORATADINE 10 MG TAB PO SCH (08:25)
[2021-01-02] MEDS: LOSARTAN 50MG TABLET PO SCH (08:26)
[2021-01-02] MEDS: POTASSIUM CHLORIDE 10 MEQ SR TABLET PO SCH ×2 (08:26→21:02)
[2021-01-02] MEDS: LACTOBACILLUS ACIDOPHILUS CAP (BACID) PO SCH ×3 (08:26→21:01)
[2021-01-02] MEDS: REMEDY PHYTOPLEX Z-GUARD PASTE 113GM TUBE (FROM STOREROOM PRODUCT) TOP SCH ×3 (08:26→21:03)
[2021-01-02] MEDS: NYSTATIN 100,000 UNITS/GM TOPICAL PWD 15 GM TOP SCH ×2 (08:27→21:03)
--- NOTE | 2021-01-02 10:44 | IPNPDOC ---
PM&R Progress Note DATE OF SERVICE: Jan 02, 2021 Human Services Case Manager Progress Note Subjective: Patient wondering if he can try baclofen in the afternoon as well given he slept better with it last evening and had fewer back spasms. REVIEW OF SYSTEMS: The following is a completed review of systems and has been reviewed. Review of systems otherwise unremarkable. PAIN: Patient self reports left lateral hip pain EYES: No recent vision changes EARS, NOSE, & THROAT: No throat pain, or dysphagia, or rhinorrhea CARDIOVASCULAR: Denies chest pain or palpitations PULMONARY: Denies shortness of breath GASTROINTESTINAL: Denies constipation/diarrhea GENITOURINARY: +urinary incontinence (improving) MUSCULOSKELETAL: LE weakness NEUROLOGICAL:LE paresthesias HEMATOLOGICAL: denies easy bruising SKIN: lumbar incision PSYCHIATRIC: Unremarkable All other review of systems found to be negative. PHYSICAL EXAMINATION: VITAL SIGNS: Please see below. GENERAL: Pleasant and cooperative. No acute distress. HEENT: PERRL. Extraocular movements intact. Clear conjunctiva CARDIOVASCULAR: Regular rate and rhythm. No murmurs, rubs, or gallops LUNGS: Clear to auscultation bilaterally. No wheezes. No rhonchi ABDOMEN: Soft, nontender, nondistended. Positive bowel sounds. Normal active bowel sounds NEUROLOGICAL: Alert and oriented times three. Cranial nerves II through XII grossly intact. Sensation grossly intact in all 4limbs EXTREMITIES: 5\5 strength bilateral upper extremities. 4+\5 strength right lower extremity. 4+/5 strength in left lower extremity. SKIN: lumbar incision with dermabond, c/d/i, sacrum without ulcer LABORATORY DATA: Please see below. PLAN: 1. Rehab- PT/OT advance mobility and ADLs, spinal precautions- ambulating further with RW 2. Neuro/ortho- bilat LE weakness in setting of spinal stenosis s/p L3-L5 laminectomy and epidural drainage -monitor for worsening weakness, saddle region anesthesia, or worsening urinary incontinence, patient denies fecal incontinence- stable on ARU -f/u spine surgeon upon dc 3. cardiac- hx of afib on xarelto, c/u betablocker -HTN c/u BP meds, adjust prn -chronic CHF c/u lasix and potassium supplements -HLD c/u statin 4. resp- MELIA on CPAP, monitor for infection, patient had recent HAP PNA 5.GI ppx- protonix 6. DVT ppx- on xarelto 7. ID- c/u Nafcillin ([facility] does not carry oxacillin) until 02-01-21, trend esr/crp, dr gonsalez consulted 8. Pain- norco, methocarbamol, Tylenol baclofen qhs and will add daily a noon prn 9. Dispo- tbd Allergies Coded Allergies: No Known Drug Allergies (Verified Allergy, Unknown, 12/23/20) Vital Signs Vital Signs Date Time Temp Pulse Resp B/P (MAP) Pulse Ox O2 Delivery O2 Flow Rate FiO2 01/02/21 08:26 162/96 01/02/21 08:25 83 01/02/21 07:58 18 01/02/21 05:16 97.2 97 Room Air Laboratory Data Labs 24H Laboratory Tests 2 01/01/21 11:31: Bedside Glucose (Misc Panel) 92 01/01/21 16:55: Bedside Glucose (Misc Panel) 142H 01/01/21 19:41: Bedside Glucose (Misc Panel) 144H 01/02/21 04:36: Bedside Glucose (Misc Panel) 102 Current Medications Current Medications Current Medications Medications (Trade) Dose Ordered Sig/No Route PRN Reason Start Time Stop Time Status Last Admin Dose Admin Acetaminophen (Tylenol Tab) 650 mg Q12HP PRN PO fever 12/23/20 17:45 Acetaminophen/ Hydrocodone Bitart ([place], Anexsia 5/325) 1 tab Q4HP PRN PO MILD/MODERATE PAIN (PS 1-7) 12/23/20 17:45 01/02/21 07:28 Amlodipine Besylate (Norvasc) 2.5 mg DAILY PO 12/24/20 09:00 01/02/21 08:25 Ascorbic Acid (Vitamin C) 500 mg DAILY PO 12/24/20 09:00 01/02/21 08:25 Atorvastatin Calcium (Lipitor) 10 mg QHS PO 12/23/20 21:00 01/01/21 21:02 Baclofen (Lioresal) 5 mg QHS PO 01/01/21 21:00 01/01/21 21:01 Clotrimazole (Mycelex) 10 mg 5XD PO 12/23/20 17:00 12/25/20 16:59 DC 12/25/20 12:28 Dextrose (Dextrose 50%) 25 ml ASDIRECTED PRN IV SEE LABEL COMMENTS 12/23/20 17:45 Docusate Sodium (Colace) 100 mg BID PO 12/23/20 21:00 12/30/20 20:59 Furosemide (Lasix) 40 mg BID@09,17 PO 12/23/20 17:00 01/02/21 08:25 Glucagon (Glucagon) 1 mg ASDIRECTED PRN SC SEE LABEL COMMENTS 12/23/20 17:45 Glucose (Glucose) 16 GM ASDIRECTED PRN PO SEE LABEL COMMENTS 12/23/20 17:45 Heparin Sodium (Heparin (Flush)) 200 units ASDIRECTED PRN IV SEE LABEL COMMENTS 12/24/20 13:10 12/28/20 22:02 Heparin Sodium (Heparin (Flush)) 200 units ASDIRECTED PRN IV SEE LABEL COMMENTS 12/28/20 13:45 01/01/21 12:20 Heparin Sodium (Heparin (Flush)) 200 units PICC IV 12/28/20 18:00 01/02/21 06:17 Home Med (Med Rec Complete!) ASDIRECTED XX 12/23/20 18:05 12/23/20 18:06 DC Hydroxyzine HCl (Atarax) 12.5 mg TID PRN PO itch 12/23/20 17:45 01/02/21 07:27 Insulin Human Lispro (HumaLOG INSULIN) SEE PROTOCOL TABLE AC SC 12/24/20 07:30 01/01/21 17:20 Insulin Human Lispro (HumaLOG INSULIN) SEE PROTOCOL TABLE QHS SC 12/23/20 21:00 Lactobacillus Acidophilus (Bacid) 1 ea TID PO 12/23/20 21:00 01/02/21 08:26 Lidocaine (Lidoderm Patch) 1 patch DAILY TD 12/25/20 09:00 01/02/21 08:24 Loratadine (Claritin) 10 mg DAILY PO 12/24/20 09:00 01/02/21 08:25 Losartan Potassium (Cozaar) 100 mg DAILY PO 12/24/20 09:00 01/02/21 08:26 Methocarbamol (Robaxin) 750 mg TID PO 01/02/21 16:00 Methocarbamol (Robaxin) 750 mg TID PRN PO spasm 12/23/20 17:45 01/02/21 09:49 DC 01/02/21 07:27 Metoprolol Succinate (TopROL XL) 150 mg DAILY PO 12/24/20 09:00 01/02/21 08:25 Nafcillin Sodium 2 gm/Dextrose 50 ml @ 100 mls/hr Q4H IV 12/23/20 18:00 12/23/20 20:14 DC Nafcillin Sodium 2 gm/Dextrose 50 ml @ 100 mls/hr Q4H IV 12/23/20 21:00 Cancel Nafcillin Sodium 2 gm/Dextrose 50 ml @ 50 mls/hr Q4H IV 12/23/20 21:00 01/02/21 08:24 Non-Formulary Medication ( See Comment Field Below ) REMOVE LIDODERM PATCH DAILY@21 XX 12/25/20 21:00 01/01/21 21:05 Nystatin (Mycostatin Powder, Nystop) apply to groin area BID TOP 12/23/20 21:00 01/02/21 08:27 Ondansetron HCl (Zofran Odt) 4 mg Q6HP PRN PO NAUSEA OR VOMITING 12/23/20 17:45 12/25/20 01:21 Pantoprazole Sodium (Protonix) 40 mg DAILY PO 12/24/20 09:00 01/02/21 08:25 Polyethylene Glycol (Miralax) 1 pkt DAILYPRN PRN PO CONSTIPATION 12/26/20 12:45 12/30/20 09:28 Potassium Chloride (Micro-K Extencaps) 20 meq BID PO 12/23/20 21:00 01/02/21 08:26 Rivaroxaban (Xarelto) 20 mg DAILY@18 PO 12/23/20 18:00 01/01/21 17:19 Senna (Senokot) 1 tab QHS PO 12/23/20 21:00 12/30/20 21:00 Sodium Chloride (Saline Lock Flush) 10 ml ASDIRECTED PRN IV SEE LABEL COMMENTS 12/28/20 13:45 01/01/21 12:21 Sodium Chloride (Saline Lock Flush) 10 ml PICC IV 12/28/20 18:00 01/02/21 06:17 Tamsulosin HCl (Flomax) 0.4 mg QHS PO 12/23/20 21:00 01/01/21 21:02 Vitamin E (Vitamin E) 400 units DAILY PO 12/24/20 09:00 01/02/21 08:25 ARIC FISCHER MD Jan 02, 2021 10:44
[2021-01-02] MEDS: SODIUM CHLORIDE 0.9% INJ 10 ML SYR IV PRN (12:19)
[2021-01-02 14:00] VITALS: BP 129/89
[2021-01-02] MEDS: methocarbamoL 750 MG TAB PO SCH ×2 (15:12→21:00)
[2021-01-02] MEDS: RIVAROXABAN 20 MG TAB (XARELTO) PO SCH (16:54)
[2021-01-02 20:00] VITALS: BP 150/72
[2021-01-02] MEDS: TAMSULOSIN 0.4 MG CAP PO SCH (21:00)
[2021-01-02] MEDS: SENNA 8.6 MG TAB (SENOKOT) PO SCH (21:00)
[2021-01-02] MEDS: BACLOFEN 5MG PER 1/2 TABLET PO SCH (21:01)
[2021-01-02] MEDS: ATORVASTATIN 10 MG TAB PO SCH (21:01)
[2021-01-02] MEDS: **NOTE PATIENT COMMENT** MISC XX SCH (21:03)
[2021-01-03] MEDS: NAFCILLIN SOD 2 GM in D5W MINI-BAG PLUS 50 ML IV SCH ×6 (01:18→21:02)
[2021-01-03 06:00] VITALS: BP 147/86
[2021-01-03] MEDS: SODIUM CHLORIDE 0.9% INJ 10 ML SYR IV SCH ×2 (06:21→17:55)
[2021-01-03 07:34] LABS: BASO % 0.7 % (0.0-1.0); EOS # 0.2 10^3/uL (0.0-0.5); HEMATOCRIT 33.1 % (42.0-52.0); HEMOGLOBIN 10.2 g/dl (13.5-17.5); LYMPH # 1.3 10^3/uL (1.5-5.0); MEAN CORPUSCULAR HEMOGLOBIN 28.4 pg (27.0-33.0); MEAN CORPUSCULAR HGB CONC 30.8 g/dl (32.0-36.5); MEAN CORPUSCULAR VOLUME 92.2 fl (80.0-96.0); MONO # 0.6 10^3/uL (0.0-0.8); MONO % 10.1 % (2.0-8.0); NEUTROPHILS # 3.7 10^3/uL (1.5-8.5); NEUTROPHILS % 62.9 % (36.0-66.0); PLATELET COUNT, AUTOMATED 263 10^3/uL (150-450); RED BLOOD COUNT 3.59 10^6/uL (4.30-6.10)
[2021-01-03 08:00] LABS: BLOOD UREA NITROGEN 15 MG/DL (7-18); CALCIUM LEVEL 8.8 MG/DL (8.8-10.2); CARBON DIOXIDE LEVEL 29 MEQ/L (21-32); CHLORIDE LEVEL 105 MEQ/L (98-107); GLOMERULAR FILTRATION RATE > 60.0 (>49); GLUCOSE, FASTING 105 MG/DL (70-100); POTASSIUM SERUM 3.9 MEQ/L (3.5-5.1); SODIUM LEVEL 141 MEQ/L (136-145)
[2021-01-03] MEDS: PANTOPRAZOLE 40MG TAB (PROTONIX) PO SCH (08:25)
[2021-01-03] MEDS: LORATADINE 10 MG TAB PO SCH (08:25)
[2021-01-03] MEDS: ASCORBIC ACID 500 MG TAB PO SCH (08:26)
[2021-01-03] MEDS: methocarbamoL 750 MG TAB PO SCH ×3 (08:26→21:01)
[2021-01-03] MEDS: NORCO, ANEXSIA 5/325MG TABLET (HYDROcodone/ACETAMINOPHEN) PO PRN ×2 (08:26→21:01)
[2021-01-03] MEDS: FUROSEMIDE 40 MG TAB PO SCH ×2 (08:26→16:26)
[2021-01-03] MEDS: POTASSIUM CHLORIDE 10 MEQ SR TABLET PO SCH ×2 (08:26→21:02)
[2021-01-03] MEDS: hydrOXYzine 25 MG TAB PO PRN (08:26)
[2021-01-03] MEDS: VITAMIN E 400 INTERNATIONAL UNITS CAP PO SCH (08:27)
[2021-01-03] MEDS: LACTOBACILLUS ACIDOPHILUS CAP (BACID) PO SCH ×3 (08:27→21:01)
[2021-01-03] MEDS: METOPROLOL SUCC (TopROL XL) 50MG **XL** TAB PO SCH (08:30)
[2021-01-03] MEDS: LOSARTAN 50MG TABLET PO SCH (08:31)
[2021-01-03] MEDS: DOCUSATE SODIUM 100MG CAPSULE PO SCH ×2 (08:31→20:54)
[2021-01-03] MEDS: REMEDY PHYTOPLEX Z-GUARD PASTE 113GM TUBE (FROM STOREROOM PRODUCT) TOP SCH ×3 (08:34→21:03)
--- NOTE | 2021-01-03 09:23 | IPN ---
PROGRESS NOTE DATE: 01/02/2021 SUBJECTIVE: Mr. Aguilar is doing well. He continues to improve slowly. He states his back spasm has improved. He has some hip pain and lower extremity weakness but again improving. Urinary incontinence is improving as well. He has had no fevers or chills, nausea, vomiting, or diarrhea. OBJECTIVE: Temperature 97.1, pulse 65, respirations 18, blood pressure 150/72, O2 saturation 95% on room air. Heart: Normal S1, S2. No murmurs, rubs or gallops. Lungs are clear. No wheezes, rales or rhonchi. Abdomen is obese, soft, nontender. Bowel sounds are normal. Extremities: No cyanosis, clubbing, trace edema. Lower extremity strength 4+/5 bilaterally but causes spasms. Back: Mild lumbosacral tenderness, lumbar incision with Dermabond healing well. LABS: White count 7.2, hemoglobin 10.5, hematocrit 34.4, platelets 293, 59% neutrophils, 26% lymphocytes, 10% monocytes, ESR 83. Sodium 142, potassium 3.9, chloride 106, bicarb 31, BUN 17, creatinine 0.7, glucose 110, calcium 9.4. CRP 3.3 down from 6.28. ASSESSMENT: 1. Epidural abscess L3-S1 on IV nafcillin, improving. The patient is going to be on IV antibiotics until February 01. The patient will have to finish home IV antibiotics at home with a continuous infusion of 12 gm of nafcillin over 24 hours. 2. Herniated disc with epidural abscess and muscle spasms along with lower extremity edema. Doing much better on Baclofen, Robaxin three times a day, and Vicodin. The patient is slowly improving. PLAN: Continue same dose of nafcillin 2 gm q.4h. Anticipated end of treatment February 01. Continue with labs weekly, CBC, basic profile, ESR and C-reactive protein. If the patient is discharged next week, he will need to follow up in my office in two weeks after discharge. I will write for his infusion orders next week. The patient feels very comfortable that he is going to be able to do his own infusion even though his is nervous to help him with it.
[2021-01-03] MEDS: LIDOCAINE 5% (LIDODERM) PATCH TD SCH (10:20)
[2021-01-03] MEDS: NYSTATIN 100,000 UNITS/GM TOPICAL PWD 15 GM TOP SCH ×2 (10:20→21:03)
[2021-01-03 14:00] VITALS: BP 114/63
[2021-01-03] MEDS: RIVAROXABAN 20 MG TAB (XARELTO) PO SCH (17:55)
[2021-01-03 20:10] VITALS: BP 129/71
[2021-01-03] MEDS: SENNA 8.6 MG TAB (SENOKOT) PO SCH (20:55)
[2021-01-03] MEDS: **NOTE PATIENT COMMENT** MISC XX SCH (20:55)
[2021-01-03] MEDS: BACLOFEN 5MG PER 1/2 TABLET PO SCH (21:01)
[2021-01-03] MEDS: ATORVASTATIN 10 MG TAB PO SCH (21:01)
[2021-01-03] MEDS: TAMSULOSIN 0.4 MG CAP PO SCH (21:02)
[2021-01-03] MEDS: SODIUM CHLORIDE 0.9% INJ 10 ML SYR IV PRN (22:36)
[2021-01-04] MEDS: NAFCILLIN SOD 2 GM in D5W MINI-BAG PLUS 50 ML IV SCH ×6 (01:04→21:29)
[2021-01-04] MEDS: SODIUM CHLORIDE 0.9% INJ 10 ML SYR IV PRN ×3 (02:24→22:52)
[2021-01-04 06:03] VITALS: BP 142/79
[2021-01-04] MEDS: SODIUM CHLORIDE 0.9% INJ 10 ML SYR IV SCH ×2 (06:19→17:55)
[2021-01-04] MEDS: ASCORBIC ACID 500 MG TAB PO SCH (08:50)
[2021-01-04] MEDS: methocarbamoL 750 MG TAB PO SCH ×3 (08:50→21:28)
[2021-01-04] MEDS: LACTOBACILLUS ACIDOPHILUS CAP (BACID) PO SCH ×3 (08:50→21:29)
[2021-01-04] MEDS: POTASSIUM CHLORIDE 10 MEQ SR TABLET PO SCH ×2 (08:51→21:29)
[2021-01-04] MEDS: VITAMIN E 400 INTERNATIONAL UNITS CAP PO SCH (08:51)
[2021-01-04] MEDS: FUROSEMIDE 40 MG TAB PO SCH ×2 (08:51→17:55)
[2021-01-04] MEDS: LORATADINE 10 MG TAB PO SCH (08:51)
[2021-01-04] MEDS: PANTOPRAZOLE 40MG TAB (PROTONIX) PO SCH (08:51)
[2021-01-04] MEDS: LOSARTAN 50MG TABLET PO SCH (08:51)
[2021-01-04] MEDS: LIDOCAINE 5% (LIDODERM) PATCH TD SCH (08:52)
[2021-01-04] MEDS: DOCUSATE SODIUM 100MG CAPSULE PO SCH ×2 (08:52→21:00)
[2021-01-04] MEDS: METOPROLOL SUCC (TopROL XL) 50MG **XL** TAB PO SCH (08:52)
[2021-01-04] MEDS: NYSTATIN 100,000 UNITS/GM TOPICAL PWD 15 GM TOP SCH ×2 (08:53→21:30)
[2021-01-04] MEDS: REMEDY PHYTOPLEX Z-GUARD PASTE 113GM TUBE (FROM STOREROOM PRODUCT) TOP SCH ×3 (08:53→21:30)
[2021-01-04] MEDS: NORCO, ANEXSIA 5/325MG TABLET (HYDROcodone/ACETAMINOPHEN) PO PRN ×2 (08:54→13:41)
[2021-01-04] MEDS: BACLOFEN 5MG PER 1/2 TABLET PO PRN (13:44)
[2021-01-04 14:00] VITALS: BP 127/77
[2021-01-04] MEDS: MIRALAX *UNIT DOSE* 17GM PACKET PO PRN (16:01)
[2021-01-04] MEDS: RIVAROXABAN 20 MG TAB (XARELTO) PO SCH (17:55)
[2021-01-04 20:00] VITALS: BP 134/84
[2021-01-04] MEDS: SENNA 8.6 MG TAB (SENOKOT) PO SCH (21:00)
[2021-01-04] MEDS: BACLOFEN 5MG PER 1/2 TABLET PO SCH (21:28)
[2021-01-04] MEDS: TAMSULOSIN 0.4 MG CAP PO SCH (21:28)
[2021-01-04] MEDS: ATORVASTATIN 10 MG TAB PO SCH (21:29)
[2021-01-04] MEDS: **NOTE PATIENT COMMENT** MISC XX SCH (21:30)
[2021-01-05] MEDS: NAFCILLIN SOD 2 GM in D5W MINI-BAG PLUS 50 ML IV SCH ×6 (00:56→20:54)
[2021-01-05] MEDS: SODIUM CHLORIDE 0.9% INJ 10 ML SYR IV PRN ×2 (02:12→22:27)
[2021-01-05 06:00] VITALS: BP 135/85
[2021-01-05] MEDS: SODIUM CHLORIDE 0.9% INJ 10 ML SYR IV SCH ×2 (06:44→18:28)
[2021-01-05] MEDS: LACTOBACILLUS ACIDOPHILUS CAP (BACID) PO SCH ×3 (08:10→20:53)
[2021-01-05] MEDS: POTASSIUM CHLORIDE 10 MEQ SR TABLET PO SCH ×2 (08:10→20:53)
[2021-01-05] MEDS: ASCORBIC ACID 500 MG TAB PO SCH (08:10)
[2021-01-05] MEDS: VITAMIN E 400 INTERNATIONAL UNITS CAP PO SCH (08:11)
[2021-01-05] MEDS: methocarbamoL 750 MG TAB PO SCH ×3 (08:11→20:53)
[2021-01-05] MEDS: LORATADINE 10 MG TAB PO SCH (08:11)
[2021-01-05] MEDS: PANTOPRAZOLE 40MG TAB (PROTONIX) PO SCH (08:11)
[2021-01-05] MEDS: NORCO, ANEXSIA 5/325MG TABLET (HYDROcodone/ACETAMINOPHEN) PO PRN ×2 (08:11→12:55)
[2021-01-05] MEDS: FUROSEMIDE 40 MG TAB PO SCH ×2 (08:11→16:38)
[2021-01-05] MEDS: hydrOXYzine 25 MG TAB PO PRN (08:11)
[2021-01-05] MEDS: LIDOCAINE 5% (LIDODERM) PATCH TD SCH (08:12)
[2021-01-05] MEDS: NYSTATIN 100,000 UNITS/GM TOPICAL PWD 15 GM TOP SCH ×2 (08:12→20:54)
[2021-01-05] MEDS: REMEDY PHYTOPLEX Z-GUARD PASTE 113GM TUBE (FROM STOREROOM PRODUCT) TOP SCH ×3 (08:13→20:54)
[2021-01-05] MEDS: METOPROLOL SUCC (TopROL XL) 50MG **XL** TAB PO SCH (08:15)
[2021-01-05] MEDS: LOSARTAN 50MG TABLET PO SCH (08:16)
[2021-01-05] MEDS: DOCUSATE SODIUM 100MG CAPSULE PO SCH ×2 (08:17→20:53)
[2021-01-05] MEDS: BACLOFEN 5MG PER 1/2 TABLET PO PRN (12:55)
[2021-01-05 14:00] VITALS: BP 122/64
[2021-01-05] MEDS: RIVAROXABAN 20 MG TAB (XARELTO) PO SCH (16:39)
[2021-01-05 20:00] VITALS: BP 127/63
[2021-01-05] MEDS: ATORVASTATIN 10 MG TAB PO SCH (20:53)
[2021-01-05] MEDS: TAMSULOSIN 0.4 MG CAP PO SCH (20:53)
[2021-01-05] MEDS: SENNA 8.6 MG TAB (SENOKOT) PO SCH (20:54)
[2021-01-05] MEDS: **NOTE PATIENT COMMENT** MISC XX SCH (20:54)
[2021-01-05] MEDS: BACLOFEN 5MG PER 1/2 TABLET PO SCH (21:46)
[2021-01-06] MEDS: NAFCILLIN SOD 2 GM in D5W MINI-BAG PLUS 50 ML IV SCH ×6 (00:54→20:20)
[2021-01-06] MEDS: SODIUM CHLORIDE 0.9% INJ 10 ML SYR IV PRN ×2 (02:12→14:26)
[2021-01-06 05:47] VITALS: BP 143/67
[2021-01-06] MEDS: SODIUM CHLORIDE 0.9% INJ 10 ML SYR IV SCH ×2 (06:37→17:20)
[2021-01-06] MEDS: NORCO, ANEXSIA 5/325MG TABLET (HYDROcodone/ACETAMINOPHEN) PO PRN ×3 (07:21→20:21)
[2021-01-06] MEDS: hydrOXYzine 25 MG TAB PO PRN (07:22)
[2021-01-06 07:51] LABS: BASO % 0.6 % (0.0-1.0); EOS # 0.2 10^3/uL (0.0-0.5); EOS % 3.5 % (0.0-3.0); HEMATOCRIT 34.4 % (42.0-52.0); HEMOGLOBIN 10.7 g/dl (13.5-17.5); LYMPH # 1.4 10^3/uL (1.5-5.0); MEAN CORPUSCULAR HEMOGLOBIN 28.8 pg (27.0-33.0); MEAN CORPUSCULAR HGB CONC 31.1 g/dl (32.0-36.5); MEAN CORPUSCULAR VOLUME 92.7 fl (80.0-96.0); MONO # 0.7 10^3/uL (0.0-0.8); MONO % 10.9 % (2.0-8.0); NEUTROPHILS # 3.8 10^3/uL (1.5-8.5); NEUTROPHILS % 61.5 % (36.0-66.0); PLATELET COUNT, AUTOMATED 246 10^3/uL (150-450); RED BLOOD COUNT 3.71 10^6/uL (4.30-6.10); WHITE BLOOD COUNT 6.3 10^3/uL (4.0-10.0)
[2021-01-06 08:10] LABS: BLOOD UREA NITROGEN 17 MG/DL (7-18); CARBON DIOXIDE LEVEL 29 MEQ/L (21-32); CHLORIDE LEVEL 107 MEQ/L (98-107); GLOMERULAR FILTRATION RATE > 60.0 (>49); GLUCOSE, FASTING 116 MG/DL (70-100); POTASSIUM SERUM 3.7 MEQ/L (3.5-5.1); SODIUM LEVEL 141 MEQ/L (136-145)
[2021-01-06] MEDS: REMEDY PHYTOPLEX Z-GUARD PASTE 113GM TUBE (FROM STOREROOM PRODUCT) TOP SCH ×3 (09:00→20:22)
[2021-01-06] MEDS: DOCUSATE SODIUM 100MG CAPSULE PO SCH ×2 (09:00→20:22)
[2021-01-06] MEDS: VITAMIN E 400 INTERNATIONAL UNITS CAP PO SCH (09:26)
[2021-01-06] MEDS: LORATADINE 10 MG TAB PO SCH (09:26)
[2021-01-06] MEDS: POTASSIUM CHLORIDE 10 MEQ SR TABLET PO SCH ×2 (09:26→20:20)
[2021-01-06] MEDS: LACTOBACILLUS ACIDOPHILUS CAP (BACID) PO SCH ×3 (09:26→20:20)
[2021-01-06] MEDS: methocarbamoL 750 MG TAB PO SCH ×3 (09:26→20:21)
[2021-01-06] MEDS: LIDOCAINE 5% (LIDODERM) PATCH TD SCH (09:27)
[2021-01-06] MEDS: ASCORBIC ACID 500 MG TAB PO SCH (09:27)
[2021-01-06] MEDS: PANTOPRAZOLE 40MG TAB (PROTONIX) PO SCH (09:27)
[2021-01-06] MEDS: FUROSEMIDE 40 MG TAB PO SCH ×2 (09:27→17:19)
[2021-01-06] MEDS: NYSTATIN 100,000 UNITS/GM TOPICAL PWD 15 GM TOP SCH ×2 (09:31→20:21)
[2021-01-06] MEDS: LOSARTAN 50MG TABLET PO SCH (09:34)
[2021-01-06] MEDS: METOPROLOL SUCC (TopROL XL) 50MG **XL** TAB PO SCH (09:34)
[2021-01-06] MEDS: BACLOFEN 5MG PER 1/2 TABLET PO PRN (13:12)
[2021-01-06 14:00] VITALS: BP 113/61
[2021-01-06] MEDS: RIVAROXABAN 20 MG TAB (XARELTO) PO SCH (17:19)
[2021-01-06 20:00] VITALS: BP 141/75
[2021-01-06] MEDS: ATORVASTATIN 10 MG TAB PO SCH (20:20)
[2021-01-06] MEDS: TAMSULOSIN 0.4 MG CAP PO SCH (20:20)
[2021-01-06] MEDS: BACLOFEN 5MG PER 1/2 TABLET PO SCH (20:20)
[2021-01-06] MEDS: SENNA 8.6 MG TAB (SENOKOT) PO SCH (20:21)
[2021-01-06] MEDS: **NOTE PATIENT COMMENT** MISC XX SCH (20:23)
[2021-01-07] MEDS: NORCO, ANEXSIA 5/325MG TABLET (HYDROcodone/ACETAMINOPHEN) PO PRN ×4 (00:38→20:20)
[2021-01-07] MEDS: NAFCILLIN SOD 2 GM in D5W MINI-BAG PLUS 50 ML IV SCH ×6 (00:40→20:21)
[2021-01-07 05:21] VITALS: BP 142/68
[2021-01-07] MEDS: SODIUM CHLORIDE 0.9% INJ 10 ML SYR IV SCH ×2 (05:22→17:38)
--- NOTE | 2021-01-07 07:54 | IPNPDOC ---
PM&R Progress Note DATE OF SERVICE: Jan 03, 2021 [place] Progress Note Subjective: Patient reporting he is feeling well overall and that his pain is well controlled. REVIEW OF SYSTEMS: The following is a completed review of systems and has been reviewed. Review of systems otherwise unremarkable. PAIN: Patient self reports left lateral hip pain EYES: No recent vision changes EARS, NOSE, & THROAT: No throat pain, or dysphagia, or rhinorrhea CARDIOVASCULAR: Denies chest pain or palpitations PULMONARY: Denies shortness of breath GASTROINTESTINAL: Denies constipation/diarrhea GENITOURINARY: +urinary incontinence (improving) MUSCULOSKELETAL: LE weakness NEUROLOGICAL:LE paresthesias HEMATOLOGICAL: denies easy bruising SKIN: lumbar incision PSYCHIATRIC: Unremarkable All other review of systems found to be negative. PHYSICAL EXAMINATION: VITAL SIGNS: Please see below. GENERAL: Pleasant and cooperative. No acute distress. HEENT: PERRL. Extraocular movements intact. Clear conjunctiva CARDIOVASCULAR: Regular rate and rhythm. No murmurs, rubs, or gallops LUNGS: Clear to auscultation bilaterally. No wheezes. No rhonchi ABDOMEN: Soft, nontender, nondistended. Positive bowel sounds. Normal active bowel sounds NEUROLOGICAL: Alert and oriented times three. Cranial nerves II through XII grossly intact. Sensation grossly intact in all 4limbs EXTREMITIES: 5\5 strength bilateral upper extremities. 4+\5 strength right lower extremity. 4+/5 strength in left lower extremity. SKIN: lumbar incision with dermabond, c/d/i, sacrum without ulcer LABORATORY DATA: Please see below. PLAN: 1. Rehab- PT/OT advance mobility and ADLs, spinal precautions- ambulating further with RW 2. Neuro/ortho- bilat LE weakness in setting of spinal stenosis s/p L3-L5 laminectomy and epidural drainage -monitor for worsening weakness, saddle region anesthesia, or worsening urinary incontinence, patient denies fecal incontinence- stable on ARU -f/u spine surgeon upon dc 3. cardiac- hx of afib on xarelto, c/u betablocker -HTN c/u BP meds, adjust prn -chronic CHF c/u lasix and potassium supplements -HLD c/u statin 4. resp- MELIA on CPAP, monitor for infection, patient had recent HAP PNA 5.GI ppx- protonix 6. DVT ppx- on xarelto 7. ID- c/u Nafcillin ([facility] does not carry oxacillin) until 02-01-21, trend esr/crp, dr gonsalez consulted 8. Pain- norco, methocarbamol, Tylenol -c/u baclofen qhs and daily at noon prn 9. Dispo- tbd Allergies Coded Allergies: No Known Drug Allergies (Verified Allergy, Unknown, 12/23/20) Vital Signs Vital Signs Date Time Temp Pulse Resp B/P (MAP) Pulse Ox O2 Delivery O2 Flow Rate FiO2 01/07/21 06:46 18 Room Air 01/07/21 05:21 97.3 83 142/68 (92) 96 Laboratory Data Labs 24H Laboratory Tests 2 01/06/21 16:42: Bedside Glucose (Misc Panel) 90 01/07/21 05:02: Bedside Glucose (Misc Panel) 101 Current Medications Current Medications Current Medications Medications (Trade) Dose Ordered Sig/No Route PRN Reason Start Time Stop Time Status Last Admin Dose Admin Acetaminophen (Tylenol Tab) 650 mg Q12HP PRN PO fever 12/23/20 17:45 Acetaminophen/ Hydrocodone Bitart ([place], [place] 5/325) 1 tab Q4HP PRN PO MILD/MODERATE PAIN (PS 1-7) 12/23/20 17:45 01/07/21 06:46 Amlodipine Besylate (Norvasc) 2.5 mg DAILY PO 12/24/20 09:00 01/06/21 09:33 Ascorbic Acid (Vitamin C) 500 mg DAILY PO 12/24/20 09:00 01/06/21 09:27 Atorvastatin Calcium (Lipitor) 10 mg QHS PO 12/23/20 21:00 01/06/21 20:20 Baclofen (Lioresal) 5 mg DAILY@1200 PRN PO spasm 01/03/21 15:25 01/06/21 13:12 Baclofen (Lioresal) 5 mg QHS PO 01/01/21 21:00 01/06/21 20:20 Clotrimazole (Mycelex) 10 mg 5XD PO 12/23/20 17:00 12/25/20 16:59 DC 12/25/20 12:28 Dextrose (Dextrose 50%) 25 ml ASDIRECTED PRN IV SEE LABEL COMMENTS 12/23/20 17:45 Docusate Sodium (Colace) 100 mg BID PO 12/23/20 21:00 12/30/20 20:59 Furosemide (Lasix) 40 mg BID@09,17 PO 12/23/20 17:00 01/06/21 17:19 Glucagon (Glucagon) 1 mg ASDIRECTED PRN SC SEE LABEL COMMENTS 12/23/20 17:45 Glucose (Glucose) 16 GM ASDIRECTED PRN PO SEE LABEL COMMENTS 12/23/20 17:45 Heparin Sodium (Heparin (Flush)) 200 units ASDIRECTED PRN IV SEE LABEL COMMENTS 12/24/20 13:10 01/06/21 21:50 Heparin Sodium (Heparin (Flush)) 200 units ASDIRECTED PRN IV SEE LABEL COMMENTS 12/28/20 13:45 01/06/21 14:26 Heparin Sodium (Heparin (Flush)) 200 units PICC IV 12/28/20 18:00 01/07/21 05:22 Home Med (Med Rec Complete!) ASDIRECTED XX 12/23/20 18:05 12/23/20 18:06 DC Hydroxyzine HCl (Atarax) 12.5 mg TID PRN PO itch 12/23/20 17:45 01/06/21 07:22 Insulin Human Lispro (HumaLOG INSULIN) SEE PROTOCOL TABLE AC SC 12/24/20 07:30 01/02/21 13:37 DC 01/01/21 17:20 Insulin Human Lispro (HumaLOG INSULIN) SEE PROTOCOL TABLE QHS SC 12/23/20 21:00 01/02/21 13:37 DC Lactobacillus Acidophilus (Bacid) 1 ea TID PO 12/23/20 21:00 01/06/21 20:20 Lidocaine (Lidoderm Patch) 1 patch DAILY TD 12/25/20 09:00 01/06/21 09:27 Loratadine (Claritin) 10 mg DAILY PO 12/24/20 09:00 01/06/21 09:26 Losartan Potassium (Cozaar) 100 mg DAILY PO 12/24/20 09:00 01/06/21 09:34 Methocarbamol (Robaxin) 750 mg TID PO 01/02/21 16:00 01/06/21 20:21 Methocarbamol (Robaxin) 750 mg TID PRN PO spasm 12/23/20 17:45 01/02/21 09:49 DC 01/02/21 07:27 Metoprolol Succinate (TopROL XL) 150 mg DAILY PO 12/24/20 09:00 01/06/21 09:34 Nafcillin Sodium 2 gm/Dextrose 50 ml @ 100 mls/hr Q4H IV 12/23/20 18:00 12/23/20 20:14 DC Nafcillin Sodium 2 gm/Dextrose 50 ml @ 100 mls/hr Q4H IV 12/23/20 21:00 Cancel Nafcillin Sodium 2 gm/Dextrose 50 ml @ 50 mls/hr Q4H IV 12/23/20 21:00 01/07/21 04:25 Non-Formulary Medication ( See Comment Field Below ) REMOVE LIDODERM PATCH DAILY@21 XX 12/25/20 21:00 01/06/21 20:23 Nystatin (Mycostatin Powder, Nystop) apply to groin area BID TOP 12/23/20 21:00 01/06/21 20:21 Ondansetron HCl (Zofran Odt) 4 mg Q6HP PRN PO NAUSEA OR VOMITING 12/23/20 17:45 12/25/20 01:21 Pantoprazole Sodium (Protonix) 40 mg DAILY PO 12/24/20 09:00 01/06/21 09:27 Polyethylene Glycol (Miralax) 1 pkt DAILYPRN PRN PO CONSTIPATION 12/26/20 12:45 01/04/21 16:01 Potassium Chloride (Micro-K Extencaps) 20 meq BID PO 12/23/20 21:00 01/06/21 20:20 Rivaroxaban (Xarelto) 20 mg DAILY@18 PO 12/23/20 18:00 01/06/21 17:19 Senna (Senokot) 1 tab QHS PO 12/23/20 21:00 12/30/20 21:00 Sodium Chloride (Saline Lock Flush) 10 ml ASDIRECTED PRN IV SEE LABEL COMMENTS 12/28/20 13:45 01/06/21 14:26 Sodium Chloride (Saline Lock Flush) 10 ml PICC IV 12/28/20 18:00 01/07/21 05:22 Tamsulosin HCl (Flomax) 0.4 mg QHS PO 12/23/20 21:00 01/06/21 20:20 Vitamin E (Vitamin E) 400 units DAILY PO 12/24/20 09:00 01/06/21 09:26 ARIC FISCHER MD Jan 07, 2021 07:54
--- NOTE | 2021-01-07 07:56 | IPNPDOC ---
PM&R Progress Note DATE OF SERVICE: Jan 07, 2021 [place] Progress Note Subjective: Patient stating he plopped onto the shower chair during OT and that he has been having worsenign spasms since. he would like to try an additional dosing of baclofen and an additional lidoderm patch. REVIEW OF SYSTEMS: The following is a completed review of systems and has been reviewed. Review of systems otherwise unremarkable. PAIN: Patient self reports left lateral hip pain EYES: No recent vision changes EARS, NOSE, & THROAT: No throat pain, or dysphagia, or rhinorrhea CARDIOVASCULAR: Denies chest pain or palpitations PULMONARY: Denies shortness of breath GASTROINTESTINAL: Denies constipation/diarrhea GENITOURINARY: +urinary incontinence (improving) MUSCULOSKELETAL: LE weakness NEUROLOGICAL:LE paresthesias HEMATOLOGICAL: denies easy bruising SKIN: lumbar incision PSYCHIATRIC: Unremarkable All other review of systems found to be negative. PHYSICAL EXAMINATION: VITAL SIGNS: Please see below. GENERAL: Pleasant and cooperative. No acute distress. HEENT: PERRL. Extraocular movements intact. Clear conjunctiva CARDIOVASCULAR: Regular rate and rhythm. No murmurs, rubs, or gallops LUNGS: Clear to auscultation bilaterally. No wheezes. No rhonchi ABDOMEN: Soft, nontender, nondistended. Positive bowel sounds. Normal active bowel sounds NEUROLOGICAL: Alert and oriented times three. Cranial nerves II through XII grossly intact. Sensation grossly intact in all 4limbs EXTREMITIES: 5\5 strength bilateral upper extremities. 4+\5 strength right lower extremity. 4+/5 strength in left lower extremity. SKIN: lumbar incision with dermabond, c/d/i, sacrum without ulcer LABORATORY DATA: Please see below. PLAN: 1. Rehab- PT/OT advance mobility and ADLs, spinal precautions- ambulating further with RW 2. Neuro/ortho- bilat LE weakness in setting of spinal stenosis s/p L3-L5 laminectomy and epidural drainage -monitor for worsening weakness, saddle region anesthesia, or worsening urinary incontinence, patient denies fecal incontinence- stable on ARU -f/u spine surgeon upon dc 3. cardiac- hx of afib on xarelto, c/u betablocker -HTN c/u BP meds, adjust prn -chronic CHF c/u lasix and potassium supplements -HLD c/u statin 4. resp- MELIA on CPAP, monitor for infection, patient had recent HAP PNA 5.GI ppx- protonix 6. DVT ppx- on xarelto 7. ID- c/u Nafcillin ([facility] does not carry oxacillin) until 02-01-21, trend esr/crp, dr gonsalez consulted 8. Pain- norco, methocarbamol, Tylenol -c/u baclofen 6am and qhs and daily at noon prn 9. Endo- DM- diet controlled, c/u FS 10. Dispo- tbd DME- Patient requesting a hospital bed. He will benefit from one due to his history of CHF to prevent orthopnea and for his history of MELIA. Being able to elevate the head of the bed and the legs will help prevent pulmonary and lower extremity edema respectively. Due to his history of spinal stenosis with spinal surgeries and DM he has a degree of sensory impairment and is at risk of developing bed sores. Allergies Coded Allergies: No Known Drug Allergies (Verified Allergy, Unknown, 12/23/20) Vital Signs Vital Signs Date Time Temp Pulse Resp B/P (MAP) Pulse Ox O2 Delivery O2 Flow Rate FiO2 01/07/21 06:46 18 Room Air 01/07/21 05:21 97.3 83 142/68 (92) 96 Laboratory Data Labs 24H Laboratory Tests 2 01/06/21 16:42: Bedside Glucose (Misc Panel) 90 01/07/21 05:02: Bedside Glucose (Misc Panel) 101 Current Medications Current Medications Current Medications Medications (Trade) Dose Ordered Sig/No Route PRN Reason Start Time Stop Time Status Last Admin Dose Admin Acetaminophen (Tylenol Tab) 650 mg Q12HP PRN PO fever 12/23/20 17:45 Acetaminophen/ Hydrocodone Bitart ([place], [place] 5/325) 1 tab Q4HP PRN PO MILD/MODERATE PAIN (PS 1-7) 12/23/20 17:45 01/07/21 06:46 Amlodipine Besylate (Norvasc) 2.5 mg DAILY PO 12/24/20 09:00 01/06/21 09:33 Ascorbic Acid (Vitamin C) 500 mg DAILY PO 12/24/20 09:00 01/06/21 09:27 Atorvastatin Calcium (Lipitor) 10 mg QHS PO 12/23/20 21:00 01/06/21 20:20 Baclofen (Lioresal) 5 mg DAILY@1200 PRN PO spasm 01/03/21 15:25 01/06/21 13:12 Baclofen (Lioresal) 5 mg QHS PO 01/01/21 21:00 01/06/21 20:20 Clotrimazole (Mycelex) 10 mg 5XD PO 12/23/20 17:00 12/25/20 16:59 DC 12/25/20 12:28 Dextrose (Dextrose 50%) 25 ml ASDIRECTED PRN IV SEE LABEL COMMENTS 12/23/20 17:45 Docusate Sodium (Colace) 100 mg BID PO 12/23/20 21:00 12/30/20 20:59 Furosemide (Lasix) 40 mg BID@09,17 PO 12/23/20 17:00 01/06/21 17:19 Glucagon (Glucagon) 1 mg ASDIRECTED PRN SC SEE LABEL COMMENTS 12/23/20 17:45 Glucose (Glucose) 16 GM ASDIRECTED PRN PO SEE LABEL COMMENTS 12/23/20 17:45 Heparin Sodium (Heparin (Flush)) 200 units ASDIRECTED PRN IV SEE LABEL COMMENTS 12/24/20 13:10 01/06/21 21:50 Heparin Sodium (Heparin (Flush)) 200 units ASDIRECTED PRN IV SEE LABEL COMMENTS 12/28/20 13:45 01/06/21 14:26 Heparin Sodium (Heparin (Flush)) 200 units PICC IV 12/28/20 18:00 01/07/21 05:22 Home Med (Med Rec Complete!) ASDIRECTED XX 12/23/20 18:05 12/23/20 18:06 DC Hydroxyzine HCl (Atarax) 12.5 mg TID PRN PO itch 12/23/20 17:45 01/06/21 07:22 Insulin Human Lispro (HumaLOG INSULIN) SEE PROTOCOL TABLE AC SC 12/24/20 07:30 01/02/21 13:37 DC 01/01/21 17:20 Insulin Human Lispro (HumaLOG INSULIN) SEE PROTOCOL TABLE QHS SC 12/23/20 21:00 01/02/21 13:37 DC Lactobacillus Acidophilus (Bacid) 1 ea TID PO 12/23/20 21:00 01/06/21 20:20 Lidocaine (Lidoderm Patch) 1 patch DAILY TD 12/25/20 09:00 01/06/21 09:27 Loratadine (Claritin) 10 mg DAILY PO 12/24/20 09:00 01/06/21 09:26 Losartan Potassium (Cozaar) 100 mg DAILY PO 12/24/20 09:00 01/06/21 09:34 Methocarbamol (Robaxin) 750 mg TID PO 01/02/21 16:00 01/06/21 20:21 Methocarbamol (Robaxin) 750 mg TID PRN PO spasm 12/23/20 17:45 01/02/21 09:49 DC 01/02/21 07:27 Metoprolol Succinate (TopROL XL) 150 mg DAILY PO 12/24/20 09:00 01/06/21 09:34 Nafcillin Sodium 2 gm/Dextrose 50 ml @ 100 mls/hr Q4H IV 12/23/20 18:00 12/23/20 20:14 DC Nafcillin Sodium 2 gm/Dextrose 50 ml @ 100 mls/hr Q4H IV 12/23/20 21:00 Cancel Nafcillin Sodium 2 gm/Dextrose 50 ml @ 50 mls/hr Q4H IV 12/23/20 21:00 01/07/21 04:25 Non-Formulary Medication ( See Comment Field Below ) REMOVE LIDODERM PATCH DAILY@21 XX 12/25/20 21:00 01/06/21 20:23 Nystatin (Mycostatin Powder, Nystop) apply to groin area BID TOP 12/23/20 21:00 01/06/21 20:21 Ondansetron HCl (Zofran Odt) 4 mg Q6HP PRN PO NAUSEA OR VOMITING 12/23/20 17:45 12/25/20 01:21 Pantoprazole Sodium (Protonix) 40 mg DAILY PO 12/24/20 09:00 01/06/21 09:27 Polyethylene Glycol (Miralax) 1 pkt DAILYPRN PRN PO CONSTIPATION 12/26/20 12:45 01/04/21 16:01 Potassium Chloride (Micro-K Extencaps) 20 meq BID PO 12/23/20 21:00 01/06/21 20:20 Rivaroxaban (Xarelto) 20 mg DAILY@18 PO 12/23/20 18:00 01/06/21 17:19 Senna (Senokot) 1 tab QHS PO 12/23/20 21:00 12/30/20 21:00 Sodium Chloride (Saline Lock Flush) 10 ml ASDIRECTED PRN IV SEE LABEL COMMENTS 12/28/20 13:45 01/06/21 14:26 Sodium Chloride (Saline Lock Flush) 10 ml PICC IV 12/28/20 18:00 01/07/21 05:22 Tamsulosin HCl (Flomax) 0.4 mg QHS PO 12/23/20 21:00 01/06/21 20:20 Vitamin E (Vitamin E) 400 units DAILY PO 12/24/20 09:00 01/06/21 09:26 ARIC FISCHER MD Jan 07, 2021 07:56
[2021-01-07] MEDS: REMEDY PHYTOPLEX Z-GUARD PASTE 113GM TUBE (FROM STOREROOM PRODUCT) TOP SCH ×3 (09:00→20:22)
[2021-01-07] MEDS: DOCUSATE SODIUM 100MG CAPSULE PO SCH ×2 (09:00→20:22)
[2021-01-07] MEDS: methocarbamoL 750 MG TAB PO SCH ×3 (09:03→20:19)
[2021-01-07] MEDS: LIDOCAINE 5% (LIDODERM) PATCH TD SCH ×2 (09:03→13:56)
[2021-01-07] MEDS: VITAMIN E 400 INTERNATIONAL UNITS CAP PO SCH (09:04)
[2021-01-07] MEDS: FUROSEMIDE 40 MG TAB PO SCH ×2 (09:04→17:38)
[2021-01-07] MEDS: LACTOBACILLUS ACIDOPHILUS CAP (BACID) PO SCH ×3 (09:04→20:19)
[2021-01-07] MEDS: POTASSIUM CHLORIDE 10 MEQ SR TABLET PO SCH ×2 (09:04→20:19)
[2021-01-07] MEDS: METOPROLOL SUCC (TopROL XL) 50MG **XL** TAB PO SCH (09:05)
[2021-01-07] MEDS: PANTOPRAZOLE 40MG TAB (PROTONIX) PO SCH (09:05)
[2021-01-07] MEDS: LORATADINE 10 MG TAB PO SCH (09:05)
[2021-01-07] MEDS: hydrOXYzine 25 MG TAB PO PRN (09:05)
[2021-01-07] MEDS: LOSARTAN 50MG TABLET PO SCH (09:05)
[2021-01-07] MEDS: SODIUM CHLORIDE 0.9% INJ 10 ML SYR IV PRN ×2 (09:06→12:57)
[2021-01-07] MEDS: ASCORBIC ACID 500 MG TAB PO SCH (09:06)
[2021-01-07] MEDS: NYSTATIN 100,000 UNITS/GM TOPICAL PWD 15 GM TOP SCH ×2 (09:07→20:22)
[2021-01-07] MEDS: BACLOFEN 5MG PER 1/2 TABLET PO PRN (13:55)
[2021-01-07 14:00] VITALS: BP 120/66
[2021-01-07 16:00] LABS: C REACTIVE PROTEIN QUANTITATIV 2.49 MG/DL (0.00-0.30)
[2021-01-07] MEDS: RIVAROXABAN 20 MG TAB (XARELTO) PO SCH (17:38)
[2021-01-07 20:00] VITALS: BP 139/78
[2021-01-07] MEDS: BACLOFEN 5MG PER 1/2 TABLET PO SCH ×2 (20:19→20:34)
[2021-01-07] MEDS: ATORVASTATIN 10 MG TAB PO SCH (20:20)
[2021-01-07] MEDS: TAMSULOSIN 0.4 MG CAP PO SCH (20:20)
[2021-01-07] MEDS: SENNA 8.6 MG TAB (SENOKOT) PO SCH (20:21)
[2021-01-07] MEDS: **NOTE PATIENT COMMENT** MISC XX SCH (20:23)
[2021-01-08] MEDS ORDERED: NORCO, ANEXSIA 5/325MG TABLET (HYDROcodone/ACETAMINOPHEN) As Ordered ONE (00:12)
[2021-01-08] MEDS: NORCO, ANEXSIA 5/325MG TABLET (HYDROcodone/ACETAMINOPHEN) PO PRN ×4 (00:20→16:22)
[2021-01-08] MEDS: NAFCILLIN SOD 2 GM in D5W MINI-BAG PLUS 50 ML IV SCH ×6 (00:20→21:27)
[2021-01-08] MEDS: BACLOFEN 5MG PER 1/2 TABLET PO SCH ×2 (05:57→21:27)
[2021-01-08] MEDS: SODIUM CHLORIDE 0.9% INJ 10 ML SYR IV SCH ×2 (05:58→17:35)
[2021-01-08 06:00] VITALS: BP 154/82
[2021-01-08 08:28] LABS: BASO # 0.1 10^3/uL (0.0-0.2); BASO % 0.8 % (0.0-1.0); EOS # 0.2 10^3/uL (0.0-0.5); EOS % 3.7 % (0.0-3.0); HEMATOCRIT 35.3 % (42.0-52.0); HEMOGLOBIN 10.6 g/dl (13.5-17.5); LYMPH # 1.5 10^3/uL (1.5-5.0); MEAN CORPUSCULAR VOLUME 93.1 fl (80.0-96.0); MONO # 0.7 10^3/uL (0.0-0.8); MONO % 10.5 % (2.0-8.0); NEUTROPHILS # 3.8 10^3/uL (1.5-8.5); NEUTROPHILS % 60.8 % (36.0-66.0); PLATELET COUNT, AUTOMATED 270 10^3/uL (150-450); RED BLOOD COUNT 3.79 10^6/uL (4.30-6.10); WHITE BLOOD COUNT 6.3 10^3/uL (4.0-10.0)
[2021-01-08 08:51] LABS: BLOOD UREA NITROGEN 15 MG/DL (7-18); CALCIUM LEVEL 8.8 MG/DL (8.8-10.2); CARBON DIOXIDE LEVEL 30 MEQ/L (21-32); CHLORIDE LEVEL 107 MEQ/L (98-107); CREATININE FOR GFR 0.75 MG/DL (0.70-1.30); GLOMERULAR FILTRATION RATE > 60.0 (>49); GLUCOSE, FASTING 103 MG/DL (70-100); POTASSIUM SERUM 3.9 MEQ/L (3.5-5.1); SODIUM LEVEL 142 MEQ/L (136-145)
[2021-01-08] MEDS: DOCUSATE SODIUM 100MG CAPSULE PO SCH ×2 (09:00→21:26)
[2021-01-08] MEDS: methocarbamoL 750 MG TAB PO SCH ×3 (09:16→21:26)
[2021-01-08] MEDS: LACTOBACILLUS ACIDOPHILUS CAP (BACID) PO SCH ×3 (09:16→21:27)
[2021-01-08] MEDS: VITAMIN E 400 INTERNATIONAL UNITS CAP PO SCH (09:16)
[2021-01-08] MEDS: ASCORBIC ACID 500 MG TAB PO SCH (09:16)
[2021-01-08] MEDS: LORATADINE 10 MG TAB PO SCH (09:16)
[2021-01-08] MEDS: PANTOPRAZOLE 40MG TAB (PROTONIX) PO SCH (09:16)
[2021-01-08] MEDS: LOSARTAN 50MG TABLET PO SCH (09:17)
[2021-01-08] MEDS: METOPROLOL SUCC (TopROL XL) 50MG **XL** TAB PO SCH (09:18)
[2021-01-08] MEDS: POTASSIUM CHLORIDE 10 MEQ SR TABLET PO SCH ×2 (09:18→21:27)
[2021-01-08] MEDS: FUROSEMIDE 40 MG TAB PO SCH ×2 (09:18→16:22)
[2021-01-08] MEDS: REMEDY PHYTOPLEX Z-GUARD PASTE 113GM TUBE (FROM STOREROOM PRODUCT) TOP SCH ×3 (09:20→21:33)
[2021-01-08] MEDS: LIDOCAINE 5% (LIDODERM) PATCH TD SCH (09:20)
[2021-01-08] MEDS: NYSTATIN 100,000 UNITS/GM TOPICAL PWD 15 GM TOP SCH ×2 (09:20→21:33)
--- NOTE | 2021-01-08 10:53 | IPNPDOC ---
PM&R Progress Note DATE OF SERVICE: Jan 08, 2021 [employer] Progress Note Subjective: Patient stating his muscle spasm is much better and he feels ready to go home tomorrow. REVIEW OF SYSTEMS: The following is a completed review of systems and has been reviewed. Review of systems otherwise unremarkable. PAIN: Patient self reports left lateral hip pain EYES: No recent vision changes EARS, NOSE, & THROAT: No throat pain, or dysphagia, or rhinorrhea CARDIOVASCULAR: Denies chest pain or palpitations PULMONARY: Denies shortness of breath GASTROINTESTINAL: Denies constipation/diarrhea GENITOURINARY: +urinary incontinence (improving) MUSCULOSKELETAL: LE weakness NEUROLOGICAL:LE paresthesias HEMATOLOGICAL: denies easy bruising SKIN: lumbar incision PSYCHIATRIC: Unremarkable All other review of systems found to be negative. PHYSICAL EXAMINATION: VITAL SIGNS: Please see below. GENERAL: Pleasant and cooperative. No acute distress. HEENT: PERRL. Extraocular movements intact. Clear conjunctiva CARDIOVASCULAR: Regular rate and rhythm. No murmurs, rubs, or gallops LUNGS: Clear to auscultation bilaterally. No wheezes. No rhonchi ABDOMEN: Soft, nontender, nondistended. Positive bowel sounds. Normal active bowel sounds NEUROLOGICAL: Alert and oriented times three. Cranial nerves II through XII grossly intact. Sensation grossly intact in all 4limbs EXTREMITIES: 5\5 strength bilateral upper extremities. 4+\5 strength right lower extremity. 4+/5 strength in left lower extremity. SKIN: lumbar incision with dermabond, c/d/i, sacrum without ulcer LABORATORY DATA: Please see below. PLAN: 1. Rehab- PT/OT advance mobility and ADLs, spinal precautions- ambulating further with RW 2. Neuro/ortho- bilat LE weakness in setting of spinal stenosis s/p L3-L5 laminectomy and epidural drainage -monitor for worsening weakness, saddle region anesthesia, or worsening urinary incontinence, patient denies fecal incontinence- stable on ARU -f/u spine surgeon upon dc 3. cardiac- hx of afib on xarelto, c/u betablocker -HTN c/u BP meds, adjust prn -chronic CHF c/u lasix and potassium supplements -HLD c/u statin 4. resp- MELIA on CPAP, monitor for infection, patient had recent HAP PNA 5.GI ppx- protonix 6. DVT ppx- on xarelto 7. ID- c/u Nafcillin ([facility] does not carry oxacillin) until 02-01-21, trend esr/crp, dr gonsalez consulted 8. Pain- norco, methocarbamol, Tylenol -c/u baclofen 6am and qhs and daily at noon prn 9. Endo- DM- diet controlled, c/u FS 10. Dispo- 01-09-21 to home, progressing towards goals Allergies Coded Allergies: No Known Drug Allergies (Verified Allergy, Unknown, 12/23/20) Vital Signs Vital Signs Date Time Temp Pulse Resp B/P (MAP) Pulse Ox O2 Delivery O2 Flow Rate FiO2 01/08/21 10:13 16 01/08/21 09:19 67 127/77 01/08/21 06:30 Room Air 01/08/21 06:00 97.9 96 Laboratory Data CBC/BMP Laboratory Tests 01/08/21 07:11 Labs 24H Laboratory Tests 2 01/07/21 16:22: Bedside Glucose (Misc Panel) 135H 01/08/21 05:10: Bedside Glucose (Misc Panel) 100 01/08/21 07:11: Immature Granulocyte % (Auto) 0.2, Neutrophils (%) (Auto) 60.8, Lymphocytes (%) (Auto) 24.0, Monocytes (%) (Auto) 10.5H, Eosinophils (%) (Auto) 3.7H, Basophils (%) (Auto) 0.8, Neutrophils # (Auto) 3.8, Lymphocytes # (Auto) 1.5, Monocytes # (Auto) 0.7, Eosinophils # (Auto) 0.2, Basophils # (Auto) 0.1, Nucleated Red Blood Cells % (auto) 0.0, Anion Gap 5L, Glomerular Filtration Rate > 60.0, Calcium Level 8.8 Current Medications Current Medications Current Medications Medications (Trade) Dose Ordered Sig/No Route PRN Reason Start Time Stop Time Status Last Admin Dose Admin Acetaminophen (Tylenol Tab) 650 mg Q12HP PRN PO fever 12/23/20 17:45 Acetaminophen/ Hydrocodone Bitart ([place], Anexsia 5/325) 1 tab Q4HP PRN PO MILD/MODERATE PAIN (PS 1-7) 12/23/20 17:45 01/08/21 10:13 Amlodipine Besylate (Norvasc) 2.5 mg DAILY PO 12/24/20 09:00 01/08/21 09:19 Ascorbic Acid (Vitamin C) 500 mg DAILY PO 12/24/20 09:00 01/08/21 09:16 Atorvastatin Calcium (Lipitor) 10 mg QHS PO 12/23/20 21:00 01/07/21 20:20 Baclofen (Lioresal) 5 mg BID@0600,2100 PO 01/07/21 21:00 01/08/21 05:57 Baclofen (Lioresal) 5 mg DAILY@1200 PRN PO spasm 01/03/21 15:25 01/07/21 13:55 Baclofen (Lioresal) 5 mg QHS PO 01/01/21 21:00 01/07/21 20:26 DC 01/07/21 20:19 Clotrimazole (Mycelex) 10 mg 5XD PO 12/23/20 17:00 12/25/20 16:59 DC 12/25/20 12:28 Dextrose (Dextrose 50%) 25 ml ASDIRECTED PRN IV SEE LABEL COMMENTS 12/23/20 17:45 Docusate Sodium (Colace) 100 mg BID PO 12/23/20 21:00 12/30/20 20:59 Furosemide (Lasix) 40 mg BID@09,17 PO 12/23/20 17:00 01/08/21 09:18 Glucagon (Glucagon) 1 mg ASDIRECTED PRN SC SEE LABEL COMMENTS 12/23/20 17:45 Glucose (Glucose) 16 GM ASDIRECTED PRN PO SEE LABEL COMMENTS 12/23/20 17:45 Heparin Sodium (Heparin (Flush)) 200 units ASDIRECTED PRN IV SEE LABEL COMMENTS 12/24/20 13:10 01/07/21 21:47 Heparin Sodium (Heparin (Flush)) 200 units ASDIRECTED PRN IV SEE LABEL COMMENTS 12/28/20 13:45 01/07/21 12:56 Heparin Sodium (Heparin (Flush)) 200 units PICC IV 12/28/20 18:00 01/08/21 05:58 Home Med (Med Rec Complete!) ASDIRECTED XX 12/23/20 18:05 12/23/20 18:06 DC Hydroxyzine HCl (Atarax) 12.5 mg TID PRN PO itch 12/23/20 17:45 01/07/21 09:05 Insulin Human Lispro (HumaLOG INSULIN) SEE PROTOCOL TABLE AC SC 12/24/20 07:30 01/02/21 13:37 DC 01/01/21 17:20 Insulin Human Lispro (HumaLOG INSULIN) SEE PROTOCOL TABLE QHS SC 12/23/20 21:00 01/02/21 13:37 DC Lactobacillus Acidophilus (Bacid) 1 ea TID PO 12/23/20 21:00 01/08/21 09:16 Lidocaine (Lidoderm Patch) 1 patch DAILY TD 12/25/20 09:00 01/07/21 12:44 DC 01/07/21 09:03 Lidocaine (Lidoderm Patch) 2 patch DAILY TD 01/07/21 09:00 01/08/21 09:20 Loratadine (Claritin) 10 mg DAILY PO 12/24/20 09:00 01/08/21 09:16 Losartan Potassium (Cozaar) 100 mg DAILY PO 12/24/20 09:00 01/08/21 09:17 Methocarbamol (Robaxin) 750 mg TID PO 01/02/21 16:00 01/08/21 09:16 Methocarbamol (Robaxin) 750 mg TID PRN PO spasm 12/23/20 17:45 01/02/21 09:49 DC 01/02/21 07:27 Metoprolol Succinate (TopROL XL) 150 mg DAILY PO 12/24/20 09:00 01/08/21 09:18 Nafcillin Sodium 2 gm/Dextrose 50 ml @ 100 mls/hr Q4H IV 12/23/20 18:00 12/23/20 20:14 DC Nafcillin Sodium 2 gm/Dextrose 50 ml @ 100 mls/hr Q4H IV 12/23/20 21:00 Cancel Nafcillin Sodium 2 gm/Dextrose 50 ml @ 50 mls/hr Q4H IV 12/23/20 21:00 01/08/21 09:16 Non-Formulary Medication ( See Comment Field Below ) REMOVE LIDODERM PATCH DAILY@21 XX 12/25/20 21:00 01/07/21 20:23 Nystatin (Mycostatin Powder, Nystop) apply to groin area BID TOP 12/23/20 21:00 01/08/21 09:20 Ondansetron HCl (Zofran Odt) 4 mg Q6HP PRN PO NAUSEA OR VOMITING 12/23/20 17:45 12/25/20 01:21 Pantoprazole Sodium (Protonix) 40 mg DAILY PO 12/24/20 09:00 01/08/21 09:16 Polyethylene Glycol (Miralax) 1 pkt DAILYPRN PRN PO CONSTIPATION 12/26/20 12:45 01/04/21 16:01 Potassium Chloride (Micro-K Extencaps) 20 meq BID PO 12/23/20 21:00 01/08/21 09:18 Rivaroxaban (Xarelto) 20 mg DAILY@18 PO 12/23/20 18:00 01/07/21 17:38 Senna (Senokot) 1 tab QHS PO 12/23/20 21:00 12/30/20 21:00 Sodium Chloride (Saline Lock Flush) 10 ml ASDIRECTED PRN IV SEE LABEL COMMENTS 12/28/20 13:45 01/07/21 12:57 Sodium Chloride (Saline Lock Flush) 10 ml PICC IV 12/28/20 18:00 01/08/21 05:58 Tamsulosin HCl (Flomax) 0.4 mg QHS PO 12/23/20 21:00 01/07/21 20:20 Vitamin E (Vitamin E) 400 units DAILY PO 12/24/20 09:00 01/08/21 09:16 ARIC FISCHER MD Jan 08, 2021 10:53
[2021-01-08] MEDS ORDERED: AMLO25TA PO (11:00)
[2021-01-08] MEDS ORDERED: BACL10TA2 PO (11:00)
[2021-01-08] MEDS ORDERED: METH-1165 PO (11:00)
[2021-01-08] MEDS ORDERED: METO1TAB7 PO (11:00)
[2021-01-08] MEDS ORDERED: ASCO50TA PO (11:00)
[2021-01-08] MEDS ORDERED: HYDR-3715 PO (11:00)
[2021-01-08] MEDS ORDERED: FLOM0.4C39 PO (11:00)
[2021-01-08] MEDS ORDERED: XARE20TA PO (11:00)
[2021-01-08] MEDS ORDERED: KLOR10TA76 PO (11:00)
[2021-01-08] MEDS ORDERED: CLAR10TA7 PO (11:00)
[2021-01-08] MEDS ORDERED: FURO40TA2 PO (11:00)
[2021-01-08] MEDS ORDERED: COZA50TA PO (11:00)
[2021-01-08] MEDS ORDERED: ATOR1TAB19 PO (11:00)
[2021-01-08] MEDS ORDERED: VITAE40CA PO (11:00)
[2021-01-08] MEDS ORDERED: RISATAB3 PO (11:00)
[2021-01-08 14:00] VITALS: BP 112/64
[2021-01-08] MEDS: RIVAROXABAN 20 MG TAB (XARELTO) PO SCH (17:35)
[2021-01-08 20:00] VITALS: BP 139/78
[2021-01-08] MEDS: SENNA 8.6 MG TAB (SENOKOT) PO SCH (21:26)
[2021-01-08] MEDS: ATORVASTATIN 10 MG TAB PO SCH (21:27)
[2021-01-08] MEDS: TAMSULOSIN 0.4 MG CAP PO SCH (21:27)
[2021-01-08] MEDS: **NOTE PATIENT COMMENT** MISC XX SCH (21:33)
[2021-01-09] MEDS: NAFCILLIN SOD 2 GM in D5W MINI-BAG PLUS 50 ML IV SCH ×6 (01:36→20:22)
[2021-01-09] MEDS: BACLOFEN 5MG PER 1/2 TABLET PO SCH ×2 (05:24→20:21)
[2021-01-09] MEDS: SODIUM CHLORIDE 0.9% INJ 10 ML SYR IV SCH ×2 (05:25→17:20)
[2021-01-09 06:03] VITALS: BP 130/92
[2021-01-09] MEDS: REMEDY PHYTOPLEX Z-GUARD PASTE 113GM TUBE (FROM STOREROOM PRODUCT) TOP SCH ×3 (09:00→20:23)
[2021-01-09] MEDS: DOCUSATE SODIUM 100MG CAPSULE PO SCH ×2 (09:00→20:22)
[2021-01-09] MEDS: PANTOPRAZOLE 40MG TAB (PROTONIX) PO SCH (09:07)
[2021-01-09] MEDS: POTASSIUM CHLORIDE 10 MEQ SR TABLET PO SCH ×2 (09:07→20:21)
[2021-01-09] MEDS: ASCORBIC ACID 500 MG TAB PO SCH (09:07)
[2021-01-09] MEDS: LOSARTAN 50MG TABLET PO SCH (09:08)
[2021-01-09] MEDS: VITAMIN E 400 INTERNATIONAL UNITS CAP PO SCH (09:08)
[2021-01-09] MEDS: LACTOBACILLUS ACIDOPHILUS CAP (BACID) PO SCH ×3 (09:08→20:21)
[2021-01-09] MEDS: FUROSEMIDE 40 MG TAB PO SCH ×2 (09:08→17:19)
[2021-01-09] MEDS: methocarbamoL 750 MG TAB PO SCH ×3 (09:08→20:21)
[2021-01-09] MEDS: LORATADINE 10 MG TAB PO SCH (09:09)
[2021-01-09] MEDS: METOPROLOL SUCC (TopROL XL) 50MG **XL** TAB PO SCH (09:09)
[2021-01-09] MEDS: NORCO, ANEXSIA 5/325MG TABLET (HYDROcodone/ACETAMINOPHEN) PO PRN ×3 (09:09→20:21)
[2021-01-09] MEDS: SODIUM CHLORIDE 0.9% INJ 10 ML SYR IV PRN (09:10)
[2021-01-09] MEDS: LIDOCAINE 5% (LIDODERM) PATCH TD SCH (09:10)
[2021-01-09] MEDS: NYSTATIN 100,000 UNITS/GM TOPICAL PWD 15 GM TOP SCH ×2 (09:11→20:23)
--- NOTE | 2021-01-09 10:55 | PMRDS ---
NAME: EVIE KAUR [facility] WT ID#: [id number] : 1955 JOB: [id number] ERIKA: 12/23/2020 ACCT: [id number] DOCTOR: ARIC FISCHER MD PMR DISCHARGE SUMMARY DATE OF ADMISSION: 12/23/2020 DATE OF DISCHARGE: 01/09/2021 CHIEF COMPLAINT/DISCHARGE DIAGNOSIS: Spinal stenosis status post laminectomy. HISTORY OF PRESENT ILLNESS: This is a 65-year-old man with a past medical history of atrial fibrillation on Xarelto, morbid obesity, MELIA, hypertension, diabetes, CHF, with chronic low back pain in the setting of known spinal stenosis with worsening lower extremity weakness and saddle region anesthesia with new onset urinary incontinence, presented at [facility] with worsening pain, fevers and chills. He was diagnosed with L3 through S1 epidural abscess and underwent an L3 through L5 laminectomy with abscess I and D on 12/09/[address] Hernandez. Blood cultures grew gram positive cocci with abscess growing MSSA and his urine culture grew Klebsiella. He was also diagnosed with bilateral pneumonia for which he was placed on broad-spectrum coverage, Meropenem and then later switched to Oxacillin to be continued until February 01. He had TIKI for which his diuretics were held and then later restarted for his chronic diastolic CHF. His Xarelto was held and then restarted on 12/08/2020. He had deficits in mobility and ADLs and was deemed medically appropriate for discharge to ARU. PAST MEDICAL HISTORY: As per HPI. HOSPITAL COURSE: Patient was admitted and enrolled in a comprehensive PT/OT program. He received 24 hour nursing supervision and weekly team meetings were held to discuss his progress. Patient's IV antibiotics were switched to Nafcillin with overall improvement in his ESR and CRP. He was followed by Dr. Park, our Infectious Disease doctor who recommended follow-up as an outpatient. Patient's pain was controlled with [place], methocarbamol and in addition to Baclofen. He made steady gains in therapy, did not have any worsening neurological function and was deemed medically and functionally stable to return home. DISCHARGE MEDICATIONS: As per instructions. FUNCTIONAL HISTORY: On discharge the patient was modified independent for functional transfers, standby assist for ambulation. Thank you for this referral.
[2021-01-09] MEDS: BACLOFEN 5MG PER 1/2 TABLET PO PRN (13:27)
[2021-01-09] MEDS: hydrOXYzine 25 MG TAB PO PRN (13:31)
[2021-01-09 14:00] VITALS: BP 124/79
[2021-01-09] MEDS: RIVAROXABAN 20 MG TAB (XARELTO) PO SCH (17:20)
[2021-01-09 20:10] VITALS: BP 150/90
[2021-01-09] MEDS: ATORVASTATIN 10 MG TAB PO SCH (20:21)
[2021-01-09] MEDS: TAMSULOSIN 0.4 MG CAP PO SCH (20:21)
[2021-01-09] MEDS: SENNA 8.6 MG TAB (SENOKOT) PO SCH (20:22)
[2021-01-09] MEDS: **NOTE PATIENT COMMENT** MISC XX SCH (20:24)
[2021-01-10] MEDS: NAFCILLIN SOD 2 GM in D5W MINI-BAG PLUS 50 ML IV SCH ×5 (00:31→16:52)
[2021-01-10] MEDS: BACLOFEN 5MG PER 1/2 TABLET PO SCH (05:17)
[2021-01-10] MEDS: SODIUM CHLORIDE 0.9% INJ 10 ML SYR IV SCH ×2 (05:17→17:24)
[2021-01-10 06:25] VITALS: BP 153/81
[2021-01-10] MEDS: VITAMIN E 400 INTERNATIONAL UNITS CAP PO SCH (09:00)
[2021-01-10] MEDS: REMEDY PHYTOPLEX Z-GUARD PASTE 113GM TUBE (FROM STOREROOM PRODUCT) TOP SCH ×2 (09:00→16:00)
[2021-01-10] MEDS: DOCUSATE SODIUM 100MG CAPSULE PO SCH (09:00)
[2021-01-10] MEDS: NYSTATIN 100,000 UNITS/GM TOPICAL PWD 15 GM TOP SCH (09:00)
--- NOTE | 2021-01-10 09:42 | IPN ---
PROGRESS NOTE DATE: 01/09/2021 SUBJECTIVE: Mr. Aguilar was excited to go home, but his worker compensation insurance denied his I.V. antibiotic, so he had to stay another night. He was a little frustrated. He states his back spasm has improved. He has much more warning to make it to the bathroom and he has not been incontinent of urine or stool. His lower extremity weakness has improved. He has had no fever, chills, nausea, vomiting or diarrhea. LABORATORY DATA ON 01/08/2021: Sodium 142, potassium 3.9, chloride 107, bicarb 30, BUN 15, creatinine 0.75, glucose 103. Calcium 8.8. CRP down to 2.49. White count 6.3, hemoglobin 10.6, hematocrit 35.3, platelets 270,000, 60% neutrophils, 24% lymphocytes, 10% monocytes. PHYSICAL EXAMINATION: VITAL SIGNS: Temperature 97.1, pulse 82, respirations 18, blood pressure 150/90, O2 sat 95% on room air. HEART: Normal S1, S2. No murmurs appreciated. ABDOMEN: Morbidly obese, soft, nontender. LUNGS: Clear. No wheezes, rales or rhonchi. EXTREMITIES: Trace pitting edema. IMPRESSION: Epidural abscess from L3 to S1 on I.V. Nafcillin. Patient doing well. PLAN: The plan was to discharge him home today, but due to insurance issues, he had to stay another day. Plan to follow-up with infectious disease in 1-2 weeks after discharge. Continue I.V. antibiotics until February 01 with Nafcillin 12 grams I.V. continuous infusion. Labs to be done weekly including CBC, CMP, ESR and CRP.
[2021-01-10] MEDS: ASCORBIC ACID 500 MG TAB PO SCH (09:48)
[2021-01-10] MEDS: LACTOBACILLUS ACIDOPHILUS CAP (BACID) PO SCH ×2 (09:48→16:51)
[2021-01-10] MEDS: LORATADINE 10 MG TAB PO SCH (09:48)
[2021-01-10] MEDS: FUROSEMIDE 40 MG TAB PO SCH ×2 (09:48→16:51)
[2021-01-10] MEDS: methocarbamoL 750 MG TAB PO SCH ×2 (09:48→16:50)
[2021-01-10] MEDS: POTASSIUM CHLORIDE 10 MEQ SR TABLET PO SCH (09:48)
[2021-01-10] MEDS: LIDOCAINE 5% (LIDODERM) PATCH TD SCH (09:51)
[2021-01-10] MEDS: PANTOPRAZOLE 40MG TAB (PROTONIX) PO SCH (09:51)
[2021-01-10 09:53] VITALS: BP 140/78
[2021-01-10] MEDS: LOSARTAN 50MG TABLET PO SCH (09:54)
[2021-01-10] MEDS: METOPROLOL SUCC (TopROL XL) 50MG **XL** TAB PO SCH (09:54)
[2021-01-10] MEDS: NORCO, ANEXSIA 5/325MG TABLET (HYDROcodone/ACETAMINOPHEN) PO PRN ×2 (10:00→16:51)
[2021-01-10] MEDS: SODIUM CHLORIDE 0.9% INJ 10 ML SYR IV PRN (11:25)
[2021-01-10 14:00] VITALS: BP 121/81
[2021-01-10] MEDS: RIVAROXABAN 20 MG TAB (XARELTO) PO SCH (17:24)
== END 2021-01-10 17:00 | disposition home health service (06) | DRG 552 ==
LOC: M PM&R 12-23 16:30
PROVIDERS: ADMIT Physical Medicine & Rehabilitation; ATTEND Physical Medicine & Rehabilitation
DX: M48.062 Spinal stenosis, lumbar region with neurogenic claudication (principal); I50.32 Chronic diastolic (congestive) heart failure; E66.01 Morbid (severe) obesity due to excess calories; G47.33 Obstructive sleep apnea (adult) (pediatric); I11.0 Hypertensive heart disease with heart failure; I48.91 Unspecified atrial fibrillation; E11.9 Type 2 diabetes mellitus without complications; M62.81 Muscle weakness (generalized); R20.0 Anesthesia of skin; R32 Unspecified urinary incontinence; Z74.09 Other reduced mobility; Z74.1 Need for assistance with personal care; Z79.01 Long term (current) use of anticoagulants; Z79.899 Other long term (current) drug therapy; Z68.39 Body mass index [BMI] 39.0-39.9, adult; N40.0 Benign prostatic hyperplasia without lower urinary tract symptoms